=== PATIENT | male | born 1935 | race African-American/Black ===

== ENCOUNTER 2020-09-07 15:50 | Inpatient (IN) | payer MEDICARE, MEDICAID ==
[~2020-09-07] VITALS: Ht 177.8 cm; Wt 75.4 kg
[~2020-09-07 15:50] MED LIST: DICL100G31 TP; HYDR-4346 PO; KETO15CR2 TP; METO25TA6 MT; NITR0.4T49 SL; NITR12SP4 TL; OXYC-662 MT; SODI3.5O6 OP
[2020-09-07] MEDS ORDERED: MORPHINE SULFATE 4 MG/ML CPJ (NOT FOR IM USE) IV STA (16:24)
[2020-09-07] MEDS ORDERED: NITROGLYCERIN 0.4MG TABLET SL SL PRN (16:30)
[2020-09-07 17:51] LABS: BASOPHILS % 0.2 % (0.0-2.0); EOSINOPHILS % 0.6 % (0.0-5.0); HEMATOCRIT. 35.1 % (42.0-52.0); HEMOGLOBIN. 12.1 g/dL (14.0-18.0); LYMPHOCYTES % 51.1 % (20.0-50.0); MEAN CORPUSCULAR HEMOGLOBIN 33.7 pg (28.0-32.0); MEAN CORPUSCULAR VOLUME 97.4 fL (80.0-94.0); MEAN PLATELET VOLUME 9.9 fl (7.4-10.4); MONOCYTES % 8.5 % (2.0-8.0); NEUTROPHILS % 39.6 % (40.0-76.0); PLATELET 106 x1000/uL (130-400); RED BLOOD CELL COUNT 3.61 mill/uL (4.7-6.1); RED CELL DISTRIBUTION WIDTH 13.4 % (11.6-14.6)
[2020-09-07 17:55] LABS: CHLORIDE 109 mEq/L (98-107)
[2020-09-07 18:00] LABS: PROTHROMBIN TIME 11.2 sec (9.6-11.0)
[2020-09-07] MEDS ORDERED: MORPHINE SULFATE 4 MG/ML CPJ (NOT FOR IM USE) IV SCH (22:15)
[2020-09-08 08:14] VITALS: BP 121/63
[2020-09-08 11:40] VITALS: BP 121/72
[2020-09-08 12:00] VITALS: BP 104/54
[2020-09-08] MEDS ORDERED: ONDANSETRON HCL 4MG/2ML INJ IV PRN (12:30)
[2020-09-08] MEDS ORDERED: ACETAMINOPHEN 325MG TABLET PO PRN (12:30)
[2020-09-08] MEDS: ISOSORBIDE DINITRATE 10MG TABLET PO SCH ×2 (14:00→20:00)
[2020-09-08] MEDS: OXYCODONE HCL/ACETAMINOPHEN 5/325MG TABLET PO PRN (15:46)
[2020-09-08 16:00] VITALS: BP 137/61
[2020-09-08] MEDS ORDERED: SODIUM CHLORIDE 0.9% 500 ML IV ONE (16:30)
[2020-09-08 20:00] VITALS: BP 107/54
[2020-09-08] MEDS: ATORVASTATIN CALCIUM 40MG TABLET PO SCH (21:17)
[2020-09-08 21:19] LABS: *AMPHETAMINES SCREEN URINE NEGATIVE (NEGATIVE); *BARBITURATES SCREEN URINE NEGATIVE (NEGATIVE); *BENZODIAZEPINES SCREEN URINE NEGATIVE (NEGATIVE); *COCAINE SCREEN URINE PRESUMTIVE POSITIVE (NEGATIVE); METHADONE URINE SCREEN NEGATIVE (NEGATIVE); OPIATES URINE SCREEN PRESUMTIVE POSITIVE (NEGATIVE); PHENCYCLIDINE URINE SCREEN NEGATIVE (NEGATIVE)
[2020-09-08 21:20] LABS: CANNABINOID URINE SCREEN NEGATIVE (NEGATIVE)
[2020-09-09] VITALS (19 sets, daily range): BP systolic 95–147; BP diastolic 31–80
[2020-09-09] MEDS: OXYCODONE HCL/ACETAMINOPHEN 5/325MG TABLET PO PRN ×2 (03:51→12:08)
[2020-09-09] MEDS ORDERED: HEPARIN SODIUM 1,000 UNIT/1ML VIAL IV ONE (07:40)
[2020-09-09] MEDS ORDERED: MIDAZOLAM HCL 2 MG/2 ML VIAL ONE (07:53)
[2020-09-09] MEDS ORDERED: VERAPAMIL HCL 2.5 MG/1 ML 2ML VIAL IV ONE (07:53)
[2020-09-09] MEDS ORDERED: FENTANYL CITRATE/PF 50MCG/ML 2ML VIAL ONE (07:53)
[2020-09-09] MEDS ORDERED: LIDOCAINE HCL 1% 20ML VIAL (Pyxis) INJ ONE (07:54)
[2020-09-09] MEDS ORDERED: IODIXANOL 320MG/ML 100 ML BOTTLE IV ONE (07:54)
[2020-09-09] MEDS: ASPIRIN 81MG TABLET PO SCH (09:00)
[2020-09-09] MEDS: ISOSORBIDE DINITRATE 10MG TABLET PO SCH ×3 (09:00→18:34)
[2020-09-09 09:28] LABS: BASOPHILS % 0.5 % (0.0-2.0); EOSINOPHILS % 0.8 % (0.0-5.0); HEMATOCRIT. 35.4 % (42.0-52.0); HEMOGLOBIN. 12.4 g/dL (14.0-18.0); LYMPHOCYTES % 51.6 % (20.0-50.0); MEAN CORPUSCULAR HEMOGLOBIN 33.5 pg (28.0-32.0); MEAN CORPUSCULAR VOLUME 95.8 fL (80.0-94.0); MEAN PLATELET VOLUME 10.4 fl (7.4-10.4); MONOCYTES % 9.3 % (2.0-8.0); NEUTROPHILS % 37.8 % (40.0-76.0); PLATELET 110 x1000/uL (130-400); RED CELL DISTRIBUTION WIDTH 13.6 % (11.6-14.6)
[2020-09-09] MEDS ORDERED: ATROPINE SULFATE 1MG/10ML SYR IV PRN (10:15)
[2020-09-09] MEDS ORDERED: LORAZEPAM 1MG TABLET PO NR (18:30)
[2020-09-09] MEDS: ATORVASTATIN CALCIUM 40MG TABLET PO SCH (20:56)
[2020-09-10] VITALS (8 sets, daily range): BP systolic 95–136; BP diastolic 47–63
[2020-09-10] MEDS: OXYCODONE HCL/ACETAMINOPHEN 5/325MG TABLET PO PRN ×2 (02:52→18:07)
[2020-09-10] MEDS ORDERED: ACETAMINOPHEN 325MG TABLET PO PRN (05:00)
[2020-09-10] MEDS ORDERED: NITROGLYCERIN 0.4MG TABLET SL SL PRN (05:00)
[2020-09-10 06:24] LABS: BASOPHILS % 0.2 % (0.0-2.0); EOSINOPHILS % 0.7 % (0.0-5.0); HEMATOCRIT. 35.6 % (42.0-52.0); HEMOGLOBIN. 12.3 g/dL (14.0-18.0); LYMPHOCYTES % 43.7 % (20.0-50.0); MEAN CORPUSCULAR HEMOGLOBIN 33.7 pg (28.0-32.0); MEAN CORPUSCULAR VOLUME 97.4 fL (80.0-94.0); MEAN PLATELET VOLUME 10.5 fl (7.4-10.4); NEUTROPHILS % 44.4 % (40.0-76.0); PLATELET 100 x1000/uL (130-400); RED BLOOD CELL COUNT 3.65 mill/uL (4.7-6.1); RED CELL DISTRIBUTION WIDTH 13.5 % (11.6-14.6)
[2020-09-10] MEDS: ISOSORBIDE DINITRATE 10MG TABLET PO SCH ×3 (08:08→18:03)
[2020-09-10] MEDS: ASPIRIN 81MG TABLET PO SCH (08:08)
[2020-09-10 09:00] LABS: PROTHROMBIN TIME 10.9 sec (9.6-11.0)
[2020-09-10 09:06] LABS: CHLORIDE 107 mEq/L (98-107)
[2020-09-10] MEDS ORDERED: DIPHENHYDRAMINE 25MG CAPSULE PO PRN (21:00)
[2020-09-10] MEDS ORDERED: DOCUSATE SODIUM 100MG CAPSULE PO SCH (21:00)
[2020-09-10] MEDS ORDERED: CHLORHEXIDINE GLUCONATE 4% EXTERNAL USE TOP SCH (21:00)
[2020-09-10] MEDS ORDERED: ASCORBIC ACID 500 MG TABLET PO SCH (21:00)
[2020-09-10] MEDS ORDERED: ALLOPURINOL 300 MG TABLET PO SCH (21:00)
[2020-09-10] MEDS ORDERED: BISACODYL 10MG SUPP PR PRN (21:00)
[2020-09-10] MEDS: ATORVASTATIN CALCIUM 40MG TABLET PO SCH (22:25)
[2020-09-11] VITALS (7 sets, daily range): BP systolic 105–146; BP diastolic 63–87
[2020-09-11] MEDS: ASPIRIN 81MG TABLET PO SCH (09:07)
[2020-09-11] MEDS: ISOSORBIDE DINITRATE 10MG TABLET PO SCH ×3 (09:07→16:31)
[2020-09-11 09:53] LABS: BASOPHILS % 0.7 % (0.0-2.0); EOSINOPHILS % 0.7 % (0.0-5.0); HEMATOCRIT. 35.8 % (42.0-52.0); HEMOGLOBIN. 12.2 g/dL (14.0-18.0); LYMPHOCYTES % 39.8 % (20.0-50.0); MEAN CORPUSCULAR HEMOGLOBIN 33.2 pg (28.0-32.0); MEAN CORPUSCULAR VOLUME 97.6 fL (80.0-94.0); MONOCYTES % 9.6 % (2.0-8.0); NEUTROPHILS % 49.2 % (40.0-76.0); PLATELET 96 x1000/uL (130-400); RED BLOOD CELL COUNT 3.67 mill/uL (4.7-6.1); RED CELL DISTRIBUTION WIDTH 13.4 % (11.6-14.6)
[2020-09-11 11:28] LABS: CLARITY URINE CLOUDY (CLEAR); COLOR URINE YELLOW (YELLOW); KETONES URINE NEGATIVE (NEGATIVE); LEUKOCYTE ESTERASE URINE NEGATIVE (NEGATIVE); NITRITE URINE POSITIVE (NEGATIVE); OCCULT BLOOD URINE NEGATIVE (NEGATIVE); PH URINE >=9.0 (4.5-8.0); PROTEIN URINE TRACE (NEGATIVE); SPECIFIC GRAVITY URINE 1.012 (1.005-1.030)
[2020-09-11] MEDS: ATORVASTATIN CALCIUM 40MG TABLET PO SCH (20:50)
[2020-09-11] MEDS: ALLOPURINOL 300 MG TABLET PO SCH (20:50)
[2020-09-11] MEDS ORDERED: DOCUSATE SODIUM 100MG CAPSULE PO SCH (21:00)
[2020-09-11] MEDS ORDERED: CHLORHEXIDINE GLUCONATE 4% EXTERNAL USE TOP SCH (21:00)
[2020-09-11] MEDS ORDERED: ASCORBIC ACID 500 MG TABLET PO SCH (21:00)
[2020-09-11] MEDS: OXYCODONE HCL/ACETAMINOPHEN 5/325MG TABLET PO PRN (22:00)
[2020-09-12] VITALS (99 sets, daily range): BP systolic 92–174; BP diastolic 45–84
[2020-09-12] MEDS ORDERED: BLOOD SUGAR DIAGNOSTIC STRIP TEST ONE (04:00)
[2020-09-12] MEDS ORDERED: CEFAZOLIN 2,000 MG in DEXT 5% WATER 100 ML IV ONE (04:00)
[2020-09-12 05:31] LABS: BASOPHILS % 0.4 % (0.0-2.0); EOSINOPHILS % 0.5 % (0.0-5.0); HEMATOCRIT. 39.9 % (42.0-52.0); HEMOGLOBIN. 13.4 g/dL (14.0-18.0); LYMPHOCYTES % 57.9 % (20.0-50.0); MEAN CORPUSCULAR HEMOGLOBIN 32.4 pg (28.0-32.0); MEAN CORPUSCULAR VOLUME 96.9 fL (80.0-94.0); MEAN PLATELET VOLUME 9.8 fl (7.4-10.4); MONOCYTES % 8.7 % (2.0-8.0); NEUTROPHILS % 32.5 % (40.0-76.0); PLATELET 118 x1000/uL (130-400); RED BLOOD CELL COUNT 4.12 mill/uL (4.7-6.1)
[2020-09-12] MEDS ORDERED: SKIN ADHESIVE 0.7 GM EA TOP ONE (05:41)
[2020-09-12] MEDS ORDERED: THROMBIN (BOVINE) 5000 UNITS/VIAL TOP ONE (05:41)
[2020-09-12] MEDS ORDERED: ACETAMINOPHEN 500MG TABLET ONE (05:41)
[2020-09-12] MEDS ORDERED: POLYMYXIN B SULFATE 500000 UNITS/VIAL ONE (05:42)
[2020-09-12] MEDS: ALLOPURINOL 300 MG TABLET PO SCH (05:55)
[2020-09-12] MEDS ORDERED: DOBUTAMINE 250 MG PREMIX 250 ML IV PRN (06:00)
[2020-09-12] MEDS ORDERED: EPINEPHRINE 5 MG in DEXT 5% WATER 245 ML IV PRN (06:00)
[2020-09-12] MEDS ORDERED: PAPAVERINE HCL 180MG in SODIUM CHLORIDE 0.9% 24ML IV PRN (06:00)
[2020-09-12] MEDS ORDERED: DEL NIDO ELECTROLYTE-S(PH 7.4) 1,000 ML IV PRN ×2 (06:00)
[2020-09-12] MEDS ORDERED: NICARDIPINE 40 MG/200 ML PREMIX 200 ML IV PRN (06:00)
[2020-09-12] MEDS ORDERED: INSULIN REGULAR (DRIP) 100 UNITS in SODIUM CHLORIDE 0.9% 99 ML IV PRN (06:00)
[2020-09-12] MEDS ORDERED: NOREPINEPHRINE 8 MG in DEXT 5% WATER 242 ML IV PRN (06:00)
[2020-09-12] MEDS ORDERED: DOPAMINE 400 MG PREMIX 250 ML IV PRN (06:00)
[2020-09-12] MEDS ORDERED: NITROGLYCERIN 50MG PREMIX 250 ML IV ONE (06:31)
[2020-09-12] MEDS ORDERED: HEPARIN 1000 UNITS/ML 10ML ONE (06:33)
[2020-09-12] MEDS ORDERED: FENTANYL CITRATE/PF 50MCG/ML 2ML VIAL ONE ×2 (06:41→06:45)
[2020-09-12] MEDS ORDERED: MIDAZOLAM HCL 2 MG/2 ML VIAL ONE (06:41)
[2020-09-12] MEDS ORDERED: PROPOFOL 200MG/20ML VIAL IV ONE (06:42)
[2020-09-12] MEDS ORDERED: ROCURONIUM BROMIDE 10MG/ML VIAL 5ML IV ONE (06:52)
[2020-09-12] MEDS ORDERED: HEPARIN 10,000 UNITS/ML VIAL ONE (07:46)
[2020-09-12] MEDS ORDERED: FUROSEMIDE 100MG/10ML VIAL ONE (07:46)
[2020-09-12] MEDS ORDERED: MAGNESIUM SULFATE 5GM/10ML VIAL IV ONE (07:46)
[2020-09-12] MEDS ORDERED: ONDANSETRON HCL 4MG/2ML INJ ONE (08:19)
[2020-09-12] MEDS ORDERED: DEXAMETHASONE 4MG/ML 1ML VIAL ONE (08:20)
[2020-09-12] MEDS ORDERED: METOCLOPRAMIDE HCL 10MG/2ML VIAL ONE (08:20)
[2020-09-12] MEDS: ISOSORBIDE DINITRATE 10MG TABLET PO SCH ×4 (09:00→18:12)
[2020-09-12] MEDS ORDERED: CHLORHEXIDINE GLUCONATE 4% EXTERNAL USE TOP SCH (09:00)
[2020-09-12] MEDS: ASPIRIN 81MG TABLET PO SCH (09:00)
[2020-09-12] MEDS ORDERED: KCL 10MEQ/50ML PREMIX 150 ML IV PRN (10:15)
[2020-09-12] MEDS: BLOOD SUGAR DIAGNOSTIC STRIP TEST SCH ×13 (10:15→23:00)
[2020-09-12] MEDS ORDERED: KCL 10MEQ/50ML PREMIX 200 ML IV PRN (10:15)
[2020-09-12] MEDS ORDERED: DEXTROSE 50% WATER 50ML SYRINGE IV PRN ×6 (10:15→12:15)
[2020-09-12] MEDS ORDERED: KCL 10MEQ/50ML PREMIX 100 ML IV PRN (10:15)
[2020-09-12] MEDS ORDERED: INSULIN REGULAR (DRIP) 100 UNITS in SODIUM CHLORIDE 0.9% 100 ML IV SCH ×2 (10:15→12:15)
[2020-09-12] MEDS ORDERED: POTASSIUM CHLORIDE 10MEQ IN WATER 50ML PREMIX IV ONE (10:15)
[2020-09-12] MEDS ORDERED: MAGNESIUM SULFATE 1G IN DEXT 5% 100ML PREMIX IV ONE (10:15)
[2020-09-12] MEDS ORDERED: NEOSTIGMINE METHYLSULFATE 1MG/ML 10 ML VIAL ONE (10:33)
[2020-09-12] MEDS ORDERED: CALCIUM CHLORIDE 5,000 MG in DEXT 5% WATER 500 ML IV PRN (11:15)
[2020-09-12] MEDS ORDERED: MAGNESIUM SULFATE 3 GM in DEXT 5% WATER 100 ML IV PRN (11:15)
[2020-09-12] MEDS ORDERED: ACETAMINOPHEN 325MG TABLET PO PRN (11:15)
[2020-09-12] MEDS ORDERED: ALBUMIN HUMAN 12.5G/250ML (5%) IV PRN (11:15)
[2020-09-12] MEDS ORDERED: MAGNESIUM 2 G PREMIX 50 ML IV PRN (11:15)
[2020-09-12] MEDS ORDERED: OXYCODONE HCL/ACETAMINOPHEN 5/325MG TABLET PO PRN (11:15)
[2020-09-12] MEDS ORDERED: CALCIUM CHLORIDE 3,000 MG in DEXT 5% WATER 250 ML IV PRN (11:15)
[2020-09-12] MEDS ORDERED: MORPHINE SULFATE 2 MG/ML CPJ (NOT FOR IM USE) IV PRN (11:15)
[2020-09-12] MEDS ORDERED: ALBUMIN HUMAN 25GM/100ML (25%) IV PRN (11:15)
[2020-09-12] MEDS ORDERED: MAGNESIUM 1 G PREMIX 100 ML IV PRN (11:15)
[2020-09-12 11:28] LABS: BG BASE EXCESS -8.6 mmol/L (-2.0-2.0); BG CARBOXYHEMOGLOBIN 0.8 % (0.5-1.5); BG DEOXYHEMOGLOBIN 9.8 % (0.0-5.0); BG FRACTION INSPIRED OXYGEN 60; BG HCO3 ACT 18.1 mmol/L (22.0-26.0); BG METHEMOGLOBIN 0.3 % (0.0-1.5); BG OXYGEN SATURATION 90.1 % (92.0-98.5); BG OXYHEMOGLOBIN 89.1 % (94.0-97.0); BG PCO2 41.4 mmHg (35.0-45.0); BG PH 7.258 (7.350-7.450); BG PO2 65.8 mmHg (75.0-100.0); BG SAMPLE SITE ALINE; BG TOTAL HEMOGLOBIN 13.9 g/dL (12.0-18.0); BG VENT MODE MASK - SIMPLE
[2020-09-12 11:54] LABS: BASOPHILS % 0.5 % (0.0-2.0); EOSINOPHILS % 0.1 % (0.0-5.0); HEMATOCRIT. 37.9 % (42.0-52.0); LYMPHOCYTES % 18.3 % (20.0-50.0); MEAN CORPUSCULAR HEMOGLOBIN 33.3 pg (28.0-32.0); MEAN CORPUSCULAR VOLUME 97.2 fL (80.0-94.0); MEAN PLATELET VOLUME 10.1 fl (7.4-10.4); MONOCYTES % 1.6 % (2.0-8.0); NEUTROPHILS % 79.5 % (40.0-76.0); PLATELET 138 x1000/uL (130-400); RED BLOOD CELL COUNT 3.89 mill/uL (4.7-6.1); RED CELL DISTRIBUTION WIDTH 13.6 % (11.6-14.6)
[2020-09-12 11:58] LABS: CHLORIDE 109 mEq/L (98-107)
[2020-09-12] MEDS: DEXT 5%/0.45% NACL 1000ML 1,000 ML IV SCH (11:59)
[2020-09-12] MEDS ORDERED: BLOOD SUGAR DIAGNOSTIC STRIP TEST SCH ×2 (12:00→12:15)
[2020-09-12] MEDS ORDERED: DOPAMINE 400MG/250ML PREMIX 250 ML IV SCH (12:00)
[2020-09-12] MEDS ORDERED: EPINEPHRINE 5 MG in DEXT 5% WATER 245 ML IV SCH (12:00)
[2020-09-12] MEDS ORDERED: NITROGLYCERIN 50MG PREMIX 250 ML IV SCH (12:00)
[2020-09-12] MEDS ORDERED: MAGNESIUM/ALUMINUM HYDROXIDE/SIMETHICONE 30ML UDC NG SCH (12:00)
[2020-09-12] MEDS: MAGNESIUM HYDROXIDE 400MG/5ML 30ML UDC PO SCH ×3 (12:00→20:20)
[2020-09-12] MEDS ORDERED: SODIUM CHLORIDE 0.9% 500 ML IV PRN (12:00)
[2020-09-12 12:03] LABS: PHOSPHORUS 4.2 mg/dL (2.5-4.9)
[2020-09-12] MEDS ORDERED: KETOROLAC 15MG/ML VIAL IV NR (12:45)
[2020-09-12] MEDS: INSULIN REGULAR (DRIP) 100 UNITS in SODIUM CHLORIDE 0.9% 100 ML IV SCH ×2 (13:40→20:21)
[2020-09-12] MEDS: CLOPIDOGREL 75MG TABLET PO SCH ×2 (14:32→21:35)
[2020-09-12] MEDS: CEFAZOLIN 1000MG PREMIX 50 ML IV SCH ×2 (14:35→21:35)
[2020-09-12] MEDS ORDERED: LEVETIRACETAM 500 MG in SODIUM CHLORIDE 0.9% 100 ML IV SCH (14:45)
[2020-09-12] MEDS: BACITRACIN 15GM TUBE TOP SCH (17:00)
[2020-09-12] MEDS: DOCUSATE SODIUM 100MG CAPSULE PO SCH (17:07)
[2020-09-12 17:51] LABS: HEMATOCRIT. 38.9 % (42.0-52.0); HEMOGLOBIN. 13.4 g/dL (14.0-18.0); MEAN CORPUSCULAR HEMOGLOBIN 33.1 pg (28.0-32.0); MEAN CORPUSCULAR VOLUME 95.9 fL (80.0-94.0); MEAN PLATELET VOLUME 10.2 fl (7.4-10.4); PLATELET 171 x1000/uL (130-400); RED BLOOD CELL COUNT 4.06 mill/uL (4.7-6.1); RED CELL DISTRIBUTION WIDTH 13.4 % (11.6-14.6)
[2020-09-12 17:55] LABS: CHLORIDE 110 mEq/L (98-107)
[2020-09-12 18:01] LABS: PARTIAL THROMBOPLASTIN TIME 23.8 sec (23.4-31.0); PHOSPHORUS 2.7 mg/dL (2.5-4.9); PROTHROMBIN TIME 10.9 sec (9.6-11.0)
[2020-09-12] MEDS: MORPHINE SULFATE 2 MG/ML CPJ (NOT FOR IM USE) IV PRN (18:21)
[2020-09-12 18:23] LABS: PLATELET ESTIMATE NORMAL
[2020-09-12] MEDS ORDERED: MAGNESIUM 2 G PREMIX 50 ML IV NR (18:30)
[2020-09-12] MEDS ORDERED: FUROSEMIDE 40MG/4ML VIAL IVP NR (19:00)
[2020-09-12] MEDS: ATORVASTATIN CALCIUM 40MG TABLET PO SCH (20:20)
[2020-09-12] MEDS: LEVETIRACETAM 500MG PREMIX 100 ML IV SCH (20:20)
[2020-09-12] MEDS: MAGNESIUM/ALUMINUM HYDROXIDE/SIMETHICONE 30ML UDC PO SCH (20:20)
[2020-09-12] MEDS: IPRATROPIUM/ALBUTEROL 0.5-3(2.5)MG/3ML NEB HHN SCH (21:14)
[2020-09-12] MEDS: OXYCODONE HCL/ACETAMINOPHEN 5/325MG TABLET PO PRN (21:50)
[2020-09-13] VITALS (111 sets, daily range): BP systolic 0–167; BP diastolic 0–97
[2020-09-13] MEDS: IPRATROPIUM/ALBUTEROL 0.5-3(2.5)MG/3ML NEB HHN SCH ×6 (00:24→20:24)
[2020-09-13] MEDS: MAGNESIUM HYDROXIDE 400MG/5ML 30ML UDC PO SCH ×4 (00:30→12:50)
[2020-09-13] MEDS: MAGNESIUM/ALUMINUM HYDROXIDE/SIMETHICONE 30ML UDC PO SCH ×6 (00:30→20:31)
[2020-09-13] MEDS: BLOOD SUGAR DIAGNOSTIC STRIP TEST SCH ×18 (01:00→21:00)
[2020-09-13] MEDS: MORPHINE SULFATE 2 MG/ML CPJ (NOT FOR IM USE) IV PRN ×4 (01:08→15:24)
[2020-09-13] MEDS: BACITRACIN 15GM TUBE TOP SCH ×2 (05:00→17:15)
[2020-09-13 05:30] LABS: BASOPHILS % 0.1 % (0.0-2.0); HEMATOCRIT. 36.9 % (42.0-52.0); HEMOGLOBIN. 12.5 g/dL (14.0-18.0); MEAN CORPUSCULAR HEMOGLOBIN 32.5 pg (28.0-32.0); MEAN CORPUSCULAR VOLUME 95.7 fL (80.0-94.0); MEAN PLATELET VOLUME 10.3 fl (7.4-10.4); MONOCYTES % 8.8 % (2.0-8.0); NEUTROPHILS % 79.1 % (40.0-76.0); PLATELET 167 x1000/uL (130-400); RED BLOOD CELL COUNT 3.85 mill/uL (4.7-6.1); RED CELL DISTRIBUTION WIDTH 13.7 % (11.6-14.6)
[2020-09-13] MEDS ORDERED: AMIODARONE HCL 50MG/ML 3ML VIAL IV ONE (05:30)
[2020-09-13] MEDS ORDERED: AMIODARONE HCL 50MG/ML 9ML VIAL IV ONE (05:30)
[2020-09-13] MEDS: OXYCODONE HCL/ACETAMINOPHEN 5/325MG TABLET PO PRN ×2 (05:37→17:16)
[2020-09-13] MEDS ORDERED: MAGNESIUM 2 G PREMIX 50 ML IV NR (06:00)
[2020-09-13] MEDS ORDERED: AMIODARONE HCL 150 MG in DEXT 5% WATER 100 ML IV NR (06:00)
[2020-09-13] MEDS ORDERED: AMIODARONE HCL 900 MG in DEXT 5% WATER 500 ML IV NR (06:30)
[2020-09-13] MEDS: CLOPIDOGREL 75MG TABLET PO SCH ×3 (06:36→21:08)
[2020-09-13] MEDS: CEFAZOLIN 1000MG PREMIX 50 ML IV SCH ×2 (06:43→13:01)
[2020-09-13] MEDS ORDERED: FUROSEMIDE 40MG/4ML VIAL IVP SCH ×2 (06:45→14:30)
[2020-09-13] MEDS: FAMOTIDINE 20MG/2ML VIAL IV SCH (08:34)
[2020-09-13] MEDS: ASPIRIN 81MG TABLET PO SCH (08:34)
[2020-09-13] MEDS: LEVETIRACETAM 500MG PREMIX 100 ML IV SCH ×2 (08:34→20:35)
[2020-09-13] MEDS: ISOSORBIDE DINITRATE 10MG TABLET PO SCH ×3 (08:35→17:00)
[2020-09-13] MEDS: DOCUSATE SODIUM 100MG CAPSULE PO SCH ×2 (09:46→17:16)
[2020-09-13] MEDS: DEXT 5%/0.45% NACL 1000ML 1,000 ML IV SCH (12:37)
[2020-09-13] MEDS ORDERED: DEXTROSE 50% WATER 50ML SYRINGE IV PRN (14:30)
[2020-09-13] MEDS: INSULIN LISPRO 100 UNITS/ML SUBCUT SCH ×2 (17:17→21:11)
[2020-09-13] MEDS ORDERED: DOPAMINE 400MG/250ML PREMIX 250 ML IV PRN (19:30)
[2020-09-13] MEDS ORDERED: FUROSEMIDE 100MG/10ML VIAL IVP NR (19:30)
[2020-09-13] MEDS ORDERED: FUROSEMIDE IV SCH (20:30)
[2020-09-13] MEDS ORDERED: FUROSEMIDE 250 MG in SODIUM CHLORIDE 0.9% 225 ML IV SCH (20:30)
[2020-09-13] MEDS ORDERED: SODIUM CHLORIDE 0.9% IV SCH (20:30)
[2020-09-13] MEDS: ATORVASTATIN CALCIUM 40MG TABLET PO SCH (20:31)
[2020-09-13] MEDS: AMIODARONE HCL 200 MG TABLET PO SCH (20:32)
[2020-09-13] MEDS: HYDROCODONE/ACETAMINOPHEN 5/325MG TABLET PO PRN (20:48)
[2020-09-14] VITALS (95 sets, daily range): BP systolic 88–161; BP diastolic 40–104
[2020-09-14] MEDS: MAGNESIUM/ALUMINUM HYDROXIDE/SIMETHICONE 30ML UDC PO SCH ×7 (00:11→23:18)
[2020-09-14] MEDS: OXYCODONE HCL/ACETAMINOPHEN 5/325MG TABLET PO PRN (00:27)
[2020-09-14] MEDS: IPRATROPIUM/ALBUTEROL 0.5-3(2.5)MG/3ML NEB HHN SCH ×6 (00:35→20:44)
[2020-09-14] MEDS: ONDANSETRON HCL 4MG/2ML INJ IV PRN ×2 (04:44→10:58)
[2020-09-14] MEDS ORDERED: ALBUMIN HUMAN 25GM/100ML (25%) IV ONE (05:15)
[2020-09-14] MEDS ORDERED: ALBUMIN HUMAN 12.5G/250ML (5%) IV ONE (05:15)
[2020-09-14 05:45] LABS: BASOPHILS % 0.1 % (0.0-2.0); HEMATOCRIT. 34.5 % (42.0-52.0); HEMOGLOBIN. 11.5 g/dL (14.0-18.0); LYMPHOCYTES % 12.2 % (20.0-50.0); MEAN CORPUSCULAR VOLUME 96.6 fL (80.0-94.0); MEAN PLATELET VOLUME 10.5 fl (7.4-10.4); MONOCYTES % 9.5 % (2.0-8.0); NEUTROPHILS % 78.2 % (40.0-76.0); PLATELET 154 x1000/uL (130-400); RED BLOOD CELL COUNT 3.58 mill/uL (4.7-6.1); RED CELL DISTRIBUTION WIDTH 14.1 % (11.6-14.6)
[2020-09-14] MEDS: BLOOD SUGAR DIAGNOSTIC STRIP TEST SCH ×4 (06:17→20:53)
[2020-09-14] MEDS: CLOPIDOGREL 75MG TABLET PO SCH ×3 (06:51→21:17)
[2020-09-14] MEDS: INSULIN LISPRO 100 UNITS/ML SUBCUT SCH ×4 (06:53→21:14)
[2020-09-14] MEDS: AMIODARONE HCL 200 MG TABLET PO SCH ×2 (08:30→20:53)
[2020-09-14] MEDS: DOCUSATE SODIUM 100MG CAPSULE PO SCH ×2 (08:30→17:48)
[2020-09-14] MEDS: LEVETIRACETAM 500MG PREMIX 100 ML IV SCH ×2 (08:31→20:53)
[2020-09-14] MEDS: ISOSORBIDE DINITRATE 10MG TABLET PO SCH ×3 (08:31→17:48)
[2020-09-14] MEDS: FAMOTIDINE 20MG/2ML VIAL IV SCH (08:31)
[2020-09-14] MEDS: ASPIRIN 81MG TABLET PO SCH (08:33)
[2020-09-14] MEDS: BACITRACIN 15GM TUBE TOP SCH ×2 (08:51→17:49)
[2020-09-14] MEDS ORDERED: LACTULOSE 20G/30ML UDC PO PRN (10:45)
[2020-09-14] MEDS ORDERED: NA PHOS,M-B/NA PHOS,DI-BA ENEMA 118ML PR NR (11:30)
[2020-09-14] MEDS ORDERED: BENZONATATE 100MG CAPSULE PO PRN (11:30)
[2020-09-14] MEDS ORDERED: DEXT 5%/0.45% NACL 1000ML 1,000 ML IV SCH (15:15)
[2020-09-14] MEDS: METOCLOPRAMIDE HCL 10MG/2ML VIAL IV SCH ×2 (17:01→23:18)
[2020-09-14] MEDS ORDERED: DEXT 5%/0.9% NACL 1,000 ML IV SCH (20:30)
[2020-09-14] MEDS: ATORVASTATIN CALCIUM 40MG TABLET PO SCH (20:53)
[2020-09-14] MEDS: LACTULOSE 20G/30ML UDC PO SCH (21:17)
[2020-09-15] VITALS (94 sets, daily range): BP systolic 93–147; BP diastolic 42–89
[2020-09-15] MEDS: IPRATROPIUM/ALBUTEROL 0.5-3(2.5)MG/3ML NEB HHN SCH ×6 (01:02→20:02)
[2020-09-15] MEDS ORDERED: AMIODARONE HCL 900 MG in DEXT 5% WATER 482 ML IV PRN (05:15)
[2020-09-15] MEDS ORDERED: AMIODARONE HCL 150 MG in DEXT 5% WATER 97 ML IV NR (05:15)
[2020-09-15] MEDS ORDERED: FUROSEMIDE 40MG/4ML VIAL IVP NR (05:45)
[2020-09-15] MEDS ORDERED: ERYTHROMYCIN ETHYLSUCCINATE 200MG/5ML 100ML NG SCH (06:00)
[2020-09-15] MEDS: MAGNESIUM/ALUMINUM HYDROXIDE/SIMETHICONE 30ML UDC PO SCH ×5 (06:09→22:12)
[2020-09-15] MEDS: CLOPIDOGREL 75MG TABLET PO SCH ×3 (06:09→22:12)
[2020-09-15] MEDS: METOCLOPRAMIDE HCL 10MG/2ML VIAL IV SCH ×3 (06:32→17:05)
[2020-09-15 06:50] LABS: BASOPHILS % 0.1 % (0.0-2.0); EOSINOPHILS % 0.1 % (0.0-5.0); HEMATOCRIT. 26.7 % (42.0-52.0); HEMOGLOBIN. 9.2 g/dL (14.0-18.0); LYMPHOCYTES % 14.8 % (20.0-50.0); MEAN CORPUSCULAR HEMOGLOBIN 33.6 pg (28.0-32.0); MEAN CORPUSCULAR VOLUME 97.9 fL (80.0-94.0); MEAN PLATELET VOLUME 10.9 fl (7.4-10.4); MONOCYTES % 11.2 % (2.0-8.0); NEUTROPHILS % 73.8 % (40.0-76.0); PLATELET 104 x1000/uL (130-400); RED BLOOD CELL COUNT 2.72 mill/uL (4.7-6.1); RED CELL DISTRIBUTION WIDTH 13.9 % (11.6-14.6)
[2020-09-15 07:20] LABS: FOLIC ACID (FOLATE) SERUM 19.6 ng/mL (>5.38)
[2020-09-15] MEDS: BLOOD SUGAR DIAGNOSTIC STRIP TEST SCH ×4 (08:25→21:00)
[2020-09-15 09:24] LABS: BASOPHILS % 0.1 % (0.0-2.0); HEMOGLOBIN. 9.4 g/dL (14.0-18.0); LYMPHOCYTES % 8.9 % (20.0-50.0); MEAN CORPUSCULAR HEMOGLOBIN 33.8 pg (28.0-32.0); MEAN CORPUSCULAR VOLUME 97.4 fL (80.0-94.0); MEAN PLATELET VOLUME 10.6 fl (7.4-10.4); MONOCYTES % 9.8 % (2.0-8.0); NEUTROPHILS % 81.2 % (40.0-76.0); PLATELET 108 x1000/uL (130-400); RED BLOOD CELL COUNT 2.77 mill/uL (4.7-6.1)
[2020-09-15] MEDS: LEVETIRACETAM 500MG PREMIX 100 ML IV SCH ×2 (11:01→22:38)
[2020-09-15] MEDS: LACTULOSE 20G/30ML UDC PO SCH ×2 (11:01→22:12)
[2020-09-15] MEDS: FAMOTIDINE 20MG/2ML VIAL IV SCH (11:01)
[2020-09-15] MEDS: BACITRACIN 15GM TUBE TOP SCH ×2 (11:02→17:06)
[2020-09-15] MEDS: ASPIRIN 81MG TABLET PO SCH (11:02)
[2020-09-15] MEDS: DOCUSATE SODIUM 100MG CAPSULE PO SCH ×2 (11:02→17:05)
[2020-09-15] MEDS: INSULIN LISPRO 100 UNITS/ML SUBCUT SCH ×4 (11:08→21:00)
[2020-09-15] MEDS: SODIUM CHLORIDE 0.9% 1,000 ML IV SCH (11:36)
[2020-09-15] MEDS ORDERED: INSULIN GLARGINE UD 100 UNITS/ML SYR SUBCUT NR (12:30)
[2020-09-15] MEDS: ERYTHROMYCIN ETHYLSUCCINATE 200MG/5ML 100ML NG SCH ×2 (15:18→17:06)
[2020-09-15] MEDS: IRON SUCROSE COMPLEX 100 MG/5 ML ML IV SCH (15:18)
[2020-09-15] MEDS: ACETYLCYSTEINE 100MG/ML 10% VIAL 4ML INH SCH (16:53)
[2020-09-15] MEDS ORDERED: INSULIN GLARGINE UD 100 UNITS/ML SYR SUBCUT SCH (22:00)
[2020-09-15] MEDS: ATORVASTATIN CALCIUM 40MG TABLET PO SCH (22:12)
[2020-09-16] VITALS (39 sets, daily range): BP systolic 92–160; BP diastolic 44–116
[2020-09-16] MEDS: MAGNESIUM/ALUMINUM HYDROXIDE/SIMETHICONE 30ML UDC PO SCH ×6 (00:32→21:08)
[2020-09-16] MEDS: METOCLOPRAMIDE HCL 10MG/2ML VIAL IV SCH ×4 (00:32→18:00)
[2020-09-16] MEDS: ERYTHROMYCIN ETHYLSUCCINATE 200MG/5ML 100ML NG SCH ×4 (00:32→22:49)
[2020-09-16] MEDS: ACETYLCYSTEINE 100MG/ML 10% VIAL 4ML INH SCH ×3 (00:48→16:14)
[2020-09-16] MEDS: IPRATROPIUM/ALBUTEROL 0.5-3(2.5)MG/3ML NEB HHN SCH ×6 (00:48→21:22)
[2020-09-16 05:59] LABS: EOSINOPHILS % 0.2 % (0.0-5.0); HEMATOCRIT. 24.1 % (42.0-52.0); HEMOGLOBIN. 8.1 g/dL (14.0-18.0); LYMPHOCYTES % 16.6 % (20.0-50.0); MEAN CORPUSCULAR HEMOGLOBIN 32.8 pg (28.0-32.0); MEAN CORPUSCULAR VOLUME 97.6 fL (80.0-94.0); MEAN PLATELET VOLUME 10.2 fl (7.4-10.4); MONOCYTES % 11.3 % (2.0-8.0); NEUTROPHILS % 71.9 % (40.0-76.0); PLATELET 110 x1000/uL (130-400); RED BLOOD CELL COUNT 2.47 mill/uL (4.7-6.1)
[2020-09-16 06:06] LABS: PHOSPHORUS 3.4 mg/dL (2.5-4.9)
[2020-09-16] MEDS: CLOPIDOGREL 75MG TABLET PO SCH ×3 (06:15→22:50)
[2020-09-16] MEDS: SODIUM CHLORIDE 0.9% 1,000 ML IV SCH (06:21)
[2020-09-16] MEDS: BLOOD SUGAR DIAGNOSTIC STRIP TEST SCH ×4 (08:15→21:17)
[2020-09-16] MEDS: FAMOTIDINE 20MG/2ML VIAL IV SCH (08:37)
[2020-09-16] MEDS: BACITRACIN 15GM TUBE TOP SCH ×2 (08:38→16:51)
[2020-09-16] MEDS: LEVETIRACETAM 500MG PREMIX 100 ML IV SCH ×2 (08:38→20:57)
[2020-09-16] MEDS: DOCUSATE SODIUM 100MG CAPSULE PO SCH ×2 (08:41→16:49)
[2020-09-16] MEDS: ASPIRIN 81MG TABLET PO SCH (08:41)
[2020-09-16] MEDS: INSULIN LISPRO 100 UNITS/ML SUBCUT SCH ×4 (08:43→21:00)
[2020-09-16] MEDS: LACTULOSE 20G/30ML UDC PO SCH ×2 (10:00→22:50)
[2020-09-16] MEDS: HYDROCODONE/ACETAMINOPHEN 5/325MG TABLET PO PRN (12:23)
[2020-09-16] MEDS: IRON SUCROSE COMPLEX 100 MG/5 ML ML IV SCH (13:09)
[2020-09-16] MEDS ORDERED: FUROSEMIDE 40MG/4ML VIAL IVP NR (18:30)
[2020-09-16] MEDS: ATORVASTATIN CALCIUM 40MG TABLET PO SCH (21:08)
[2020-09-17] VITALS (14 sets, daily range): BP systolic 104–148; BP diastolic 52–85
[2020-09-17] MEDS: METOCLOPRAMIDE HCL 10MG/2ML VIAL IV SCH ×4 (01:26→17:42)
[2020-09-17] MEDS: MAGNESIUM/ALUMINUM HYDROXIDE/SIMETHICONE 30ML UDC PO SCH ×5 (01:30→17:42)
[2020-09-17] MEDS: IPRATROPIUM/ALBUTEROL 0.5-3(2.5)MG/3ML NEB HHN SCH ×4 (01:41→16:00)
[2020-09-17] MEDS: ACETYLCYSTEINE 100MG/ML 10% VIAL 4ML INH SCH ×3 (01:42→14:00)
[2020-09-17] MEDS: SODIUM CHLORIDE 0.9% 1,000 ML IV SCH (04:06)
[2020-09-17] MEDS: CLOPIDOGREL 75MG TABLET PO SCH ×2 (06:25→15:45)
[2020-09-17] MEDS: ERYTHROMYCIN ETHYLSUCCINATE 200MG/5ML 100ML NG SCH ×2 (06:26→15:44)
[2020-09-17 06:34] LABS: BASOPHILS % 0.2 % (0.0-2.0); EOSINOPHILS % 0.9 % (0.0-5.0); HEMATOCRIT. 24.8 % (42.0-52.0); HEMOGLOBIN. 8.3 g/dL (14.0-18.0); LYMPHOCYTES % 17.5 % (20.0-50.0); MEAN CORPUSCULAR HEMOGLOBIN 32.7 pg (28.0-32.0); MEAN CORPUSCULAR VOLUME 97.9 fL (80.0-94.0); MEAN PLATELET VOLUME 10.1 fl (7.4-10.4); MONOCYTES % 8.8 % (2.0-8.0); NEUTROPHILS % 72.6 % (40.0-76.0); PLATELET 138 x1000/uL (130-400); RED BLOOD CELL COUNT 2.53 mill/uL (4.7-6.1); RED CELL DISTRIBUTION WIDTH 13.6 % (11.6-14.6)
[2020-09-17] MEDS: BLOOD SUGAR DIAGNOSTIC STRIP TEST SCH ×3 (06:38→17:34)
[2020-09-17 06:47] LABS: PHOSPHORUS 3.4 mg/dL (2.5-4.9)
[2020-09-17] MEDS: INSULIN LISPRO 100 UNITS/ML SUBCUT SCH ×3 (07:20→17:20)
[2020-09-17] MEDS: ASPIRIN 81MG TABLET PO SCH (07:46)
[2020-09-17] MEDS: FAMOTIDINE 20MG/2ML VIAL IV SCH (07:47)
[2020-09-17] MEDS: LEVETIRACETAM 500MG PREMIX 100 ML IV SCH (07:51)
[2020-09-17] MEDS: BACITRACIN 15GM TUBE TOP SCH ×2 (07:51→17:46)
[2020-09-17] MEDS: DOCUSATE SODIUM 100MG CAPSULE PO SCH ×2 (07:52→17:42)
[2020-09-17] MEDS: HYDROCODONE/ACETAMINOPHEN 5/325MG TABLET PO PRN (09:04)
[2020-09-17] MEDS: LACTULOSE 20G/30ML UDC PO SCH (09:28)
[2020-09-17] MEDS: IRON SUCROSE COMPLEX 100 MG/5 ML ML IV SCH (12:57)
[2020-09-17] MEDS ORDERED: METOPROLOL TARTRATE 25MG TABLET PO SCH (21:00)
[2020-09-18] MEDS ORDERED: FAMOTIDINE 20MG TABLET PO SCH (06:50)
== END 2020-09-17 19:17 | DRG 233 ==
LOC: ER 15:50 → 6WST 18:50 → ENRESERV 09-08 07:36 → 3WST 09-09 09:50 → CVICU 09-12 06:36 → 3WST 09-16 17:00
PROVIDERS: ADMIT Internal Medicine; ATTEND Internal Medicine
PROC: 4A023N7 Measurement of Cardiac Sampling and Pressure, Left Heart, Percutaneous Approach (ICD-10-PCS; principal; 2020-09-09)
PROC: B2111ZZ Fluoroscopy of Multiple Coronary Arteries using Low Osmolar Contrast (ICD-10-PCS; 2020-09-09)
PROC: B54MZZA Ultrasonography of Right Upper Extremity Veins, Guidance (ICD-10-PCS; 2020-09-09)
PROC: 4A10X4Z Monitoring of Central Nervous Electrical Activity, External Approach (ICD-10-PCS; 2020-09-11)
PROC: 02100Z9 Bypass Coronary Artery, One Artery from Left Internal Mammary, Open Approach (ICD-10-PCS; 2020-09-12)
PROC: 02100Z8 Bypass Coronary Artery, One Artery from Right Internal Mammary, Open Approach (ICD-10-PCS; 2020-09-12)
PROC: 021109W Bypass Coronary Artery, Two Arteries from Aorta with Autologous Venous Tissue, Open Approach (ICD-10-PCS; 2020-09-12)
PROC: 06BQ4ZZ Excision of Left Saphenous Vein, Percutaneous Endoscopic Approach (ICD-10-PCS; 2020-09-12)
PROC: 5A1221Z Performance of Cardiac Output, Continuous (ICD-10-PCS; 2020-09-12)
DX: I25.110 Atherosclerotic heart disease of native coronary artery with unstable angina pectoris (principal); I21.4 Non-ST elevation (NSTEMI) myocardial infarction; J96.01 Acute respiratory failure with hypoxia; N17.0 Acute kidney failure with tubular necrosis; G92 Toxic encephalopathy; E44.1 Mild protein-calorie malnutrition; I13.0 Hypertensive heart and chronic kidney disease with heart failure and stage 1 through stage 4 chronic kidney disease, or unspecified chronic kidney disease; I50.42 Chronic combined systolic (congestive) and diastolic (congestive) heart failure; N39.0 Urinary tract infection, site not specified; K56.7 Ileus, unspecified; E87.1 Hypo-osmolality and hyponatremia; D64.9 Anemia, unspecified; D69.6 Thrombocytopenia, unspecified; E78.5 Hyperlipidemia, unspecified; E87.8 Other disorders of electrolyte and fluid balance, not elsewhere classified; F14.90 Cocaine use, unspecified, uncomplicated; N18.9 Chronic kidney disease, unspecified; E11.22 Type 2 diabetes mellitus with diabetic chronic kidney disease; F17.210 Nicotine dependence, cigarettes, uncomplicated; I48.0 Paroxysmal atrial fibrillation; C61 Malignant neoplasm of prostate; D63.8 Anemia in other chronic diseases classified elsewhere; Z20.822 Contact with and (suspected) exposure to COVID-19; M47.9 Spondylosis, unspecified; Z85.46 Personal history of malignant neoplasm of prostate; Z86.73 Personal history of transient ischemic attack (TIA), and cerebral infarction without residual deficits; Z95.5 Presence of coronary angioplasty implant and graft; Z79.891 Long term (current) use of opiate analgesic; Z79.899 Other long term (current) drug therapy; Z68.23 Body mass index [BMI] 23.0-23.9, adult
CPT/HCPCS: 36415; 36600; 70551; 71045; 74018; 80048; 80053; 80305; 81003; 82270; 82375; 82550; 82553; 82607; 82728; 82746; 82805; 82962; 83036; 83540; 83550; 83735; 83880; 83930; 84100; 84484; 85025; 85044; 86850; 86900; 86920; 87426; 92610; 93005; 93306; 93458; 93880; 94640; 95816; 97110; 97116; 97163; 97166; 97530; 99285; C1729; C1751; C1758; C1769; C1887; C1893; J0282; J0690; J1100; J1265; J1644; J1815; J1885; J1940; J1953; J2250; J2270; J2405; J2440; J2704; J2710; J2765; J3010; J3475; J3480; J3490; J7030; J7040; J7042; J7050; J7060; J7608; L3908; P9041; P9047; Q9967; A4315

== ENCOUNTER 2020-09-17 19:15 | Inpatient (IN) | payer MEDICARE, MEDICAID ==
[~2020-09-17] VITALS: Ht 177.8 cm; Wt 75.3 kg
[2020-09-17 19:45] VITALS: BP 144/85
[2020-09-17 20:00] VITALS: BP 116/58
[2020-09-17] MEDS ORDERED: ONDANSETRON HCL 4MG TABLET PO PRN (20:30)
[2020-09-17] MEDS ORDERED: DEXTROSE 50% WATER 50ML SYRINGE IV PRN (20:30)
[2020-09-17] MEDS ORDERED: NITROGLYCERIN 0.4MG TABLET SL SL PRN (20:30)
[2020-09-17] MEDS ORDERED: METOCLOPRAMIDE HCL 5MG TABLET PO PRN (20:30)
[2020-09-17] MEDS ORDERED: BENZONATATE 100MG CAPSULE PO PRN (20:30)
[2020-09-17] MEDS: LACTULOSE 20G/30ML UDC PO SCH (21:00)
[2020-09-17] MEDS: INSULIN LISPRO 100 UNITS/ML SUBCUT SCH (21:00)
[2020-09-17] MEDS: BACITRACIN 15GM TUBE TOP SCH (21:00)
[2020-09-17] MEDS: ATORVASTATIN CALCIUM 40MG TABLET PO SCH (21:29)
[2020-09-17] MEDS: METOPROLOL TARTRATE 25MG TABLET PO SCH (21:30)
[2020-09-17] MEDS: LEVETIRACETAM 500MG TABLET PO SCH (21:30)
[2020-09-17] MEDS: CLOPIDOGREL 75MG TABLET PO SCH (21:30)
[2020-09-17] MEDS: AMIODARONE HCL 200 MG TABLET PO SCH (21:31)
[2020-09-17] MEDS: BLOOD SUGAR DIAGNOSTIC STRIP TEST SCH (21:46)
[2020-09-17] MEDS ORDERED: ACETYLCYSTEINE 100MG/ML 10% VIAL 4ML INH SCH (22:00)
[2020-09-17] MEDS: HYDROCODONE/ACETAMINOPHEN 5/325MG TABLET PO PRN (22:39)
[2020-09-17] MEDS: MAGNESIUM/ALUMINUM HYDROXIDE/SIMETHICONE 30ML UDC PO SCH (23:15)
[2020-09-18] MEDS: ERYTHROMYCIN ETHYLSUCCINATE 200MG/5ML 100ML PO SCH ×2 (00:25→06:05)
[2020-09-18] MEDS: IPRATROPIUM/ALBUTEROL 0.5-3(2.5)MG/3ML NEB HHN SCH ×3 (01:24→16:16)
[2020-09-18] MEDS: MAGNESIUM/ALUMINUM HYDROXIDE/SIMETHICONE 30ML UDC PO SCH ×6 (04:00→23:57)
[2020-09-18] MEDS: BLOOD SUGAR DIAGNOSTIC STRIP TEST SCH ×4 (06:05→20:09)
[2020-09-18] MEDS: CLOPIDOGREL 75MG TABLET PO SCH ×3 (06:05→22:05)
[2020-09-18] MEDS ORDERED: FAMOTIDINE 20MG TABLET PO ONE (07:00)
[2020-09-18 07:58] VITALS: BP 126/64
[2020-09-18] MEDS: LACTULOSE 20G/30ML UDC PO SCH ×2 (08:52→20:08)
[2020-09-18] MEDS: HYDROCODONE/ACETAMINOPHEN 5/325MG TABLET PO PRN (08:53)
[2020-09-18] MEDS: DOCUSATE SODIUM 100MG CAPSULE PO SCH ×2 (08:53→17:02)
[2020-09-18] MEDS: AMIODARONE HCL 200 MG TABLET PO SCH ×2 (08:53→20:09)
[2020-09-18] MEDS: ASPIRIN 81MG TABLET PO SCH (08:53)
[2020-09-18] MEDS: METOPROLOL TARTRATE 25MG TABLET PO SCH ×2 (08:54→20:09)
[2020-09-18] MEDS: LEVETIRACETAM 500MG TABLET PO SCH ×2 (08:54→20:08)
[2020-09-18] MEDS: INSULIN LISPRO 100 UNITS/ML SUBCUT SCH ×4 (08:55→20:10)
[2020-09-18] MEDS: BACITRACIN 15GM TUBE TOP SCH ×2 (09:00→20:10)
[2020-09-18] MEDS ORDERED: NITROGLYCERIN 0.1MG/HR PATCH TOP SCH (10:00)
[2020-09-18] MEDS: CHLORPROMAZINE HCL 25 MG TABLET PO PRN ×2 (16:00→22:06)
[2020-09-18] MEDS: LAMOTRIGINE 25MG TABLET PO SCH (16:00)
[2020-09-18 20:00] VITALS: BP 107/57
[2020-09-18] MEDS: ATORVASTATIN CALCIUM 40MG TABLET PO SCH (20:08)
[2020-09-18] MEDS: ERYTHROMYCIN ETHYLSUCCINATE 400 MG/5 ML PO SCH (22:04)
[2020-09-19] MEDS: IPRATROPIUM/ALBUTEROL 0.5-3(2.5)MG/3ML NEB HHN SCH ×3 (01:04→13:31)
[2020-09-19] MEDS: MAGNESIUM/ALUMINUM HYDROXIDE/SIMETHICONE 30ML UDC PO SCH ×6 (03:38→23:03)
[2020-09-19] MEDS: BLOOD SUGAR DIAGNOSTIC STRIP TEST SCH ×4 (06:00→21:03)
[2020-09-19] MEDS: ERYTHROMYCIN ETHYLSUCCINATE 400 MG/5 ML PO SCH ×3 (06:00→21:50)
[2020-09-19] MEDS: CLOPIDOGREL 75MG TABLET PO SCH ×3 (06:00→21:50)
[2020-09-19] MEDS: CHLORPROMAZINE HCL 25 MG TABLET PO PRN ×3 (06:00→21:03)
[2020-09-19] MEDS: INSULIN LISPRO 100 UNITS/ML SUBCUT SCH ×4 (06:00→21:14)
[2020-09-19 07:59] LABS: CLARITY URINE CLOUDY (CLEAR); COLOR URINE YELLOW (YELLOW); KETONES URINE NEGATIVE (NEGATIVE); LEUKOCYTE ESTERASE URINE NEGATIVE (NEGATIVE); NITRITE URINE NEGATIVE (NEGATIVE); OCCULT BLOOD URINE NEGATIVE (NEGATIVE); PROTEIN URINE TRACE (NEGATIVE); SPECIFIC GRAVITY URINE 1.014 (1.005-1.030)
[2020-09-19 08:00] VITALS: BP 139/65
[2020-09-19] MEDS: AMIODARONE HCL 200 MG TABLET PO SCH ×2 (08:24→21:02)
[2020-09-19] MEDS: ASPIRIN 81MG TABLET PO SCH (08:25)
[2020-09-19] MEDS: METOPROLOL TARTRATE 25MG TABLET PO SCH ×2 (08:25→21:02)
[2020-09-19] MEDS: LEVETIRACETAM 500MG TABLET PO SCH ×2 (08:25→21:02)
[2020-09-19] MEDS: HYDROCODONE/ACETAMINOPHEN 5/325MG TABLET PO PRN (08:26)
[2020-09-19] MEDS: LAMOTRIGINE 25MG TABLET PO SCH (08:26)
[2020-09-19] MEDS: BACITRACIN 15GM TUBE TOP SCH ×2 (08:27→21:09)
[2020-09-19] MEDS: DOCUSATE SODIUM 100MG CAPSULE PO SCH ×3 (08:54→16:53)
[2020-09-19] MEDS: LACTULOSE 20G/30ML UDC PO SCH ×2 (08:54→21:00)
[2020-09-19 20:00] VITALS: BP 121/62
[2020-09-19] MEDS: ATORVASTATIN CALCIUM 40MG TABLET PO SCH (21:02)
[2020-09-19 23:06] VITALS: BP 112/64
[2020-09-19] MEDS: ZOLPIDEM TARTRATE 5MG TABLET PO PRN (23:12)
[2020-09-20] MEDS: IPRATROPIUM/ALBUTEROL 0.5-3(2.5)MG/3ML NEB HHN SCH ×3 (01:43→14:00)
[2020-09-20] MEDS: MAGNESIUM/ALUMINUM HYDROXIDE/SIMETHICONE 30ML UDC PO SCH ×5 (04:46→21:00)
[2020-09-20] MEDS: CHLORPROMAZINE HCL 25 MG TABLET PO PRN ×2 (05:44→21:05)
[2020-09-20] MEDS: CLOPIDOGREL 75MG TABLET PO SCH ×3 (05:44→21:05)
[2020-09-20 05:45] VITALS: BP 134/67
[2020-09-20] MEDS: BLOOD SUGAR DIAGNOSTIC STRIP TEST SCH ×4 (05:45→21:04)
[2020-09-20] MEDS: ERYTHROMYCIN ETHYLSUCCINATE 400 MG/5 ML PO SCH ×3 (05:45→21:05)
[2020-09-20] MEDS: INSULIN LISPRO 100 UNITS/ML SUBCUT SCH ×4 (05:45→21:00)
[2020-09-20 06:55] VITALS: BP 103/64
[2020-09-20 08:00] VITALS: BP 110/56
[2020-09-20] MEDS: LEVETIRACETAM 500MG TABLET PO SCH ×2 (08:41→21:03)
[2020-09-20] MEDS: LACTULOSE 20G/30ML UDC PO SCH ×2 (09:00→21:00)
[2020-09-20] MEDS: LAMOTRIGINE 25MG TABLET PO SCH (09:42)
[2020-09-20] MEDS: DOCUSATE SODIUM 100MG CAPSULE PO SCH ×2 (09:42→16:58)
[2020-09-20] MEDS: ASPIRIN 81MG TABLET PO SCH (09:42)
[2020-09-20] MEDS: AMIODARONE HCL 200 MG TABLET PO SCH ×2 (09:44→21:04)
[2020-09-20] MEDS: METOPROLOL TARTRATE 25MG TABLET PO SCH ×2 (09:44→21:00)
[2020-09-20] MEDS: BACITRACIN 15GM TUBE TOP SCH ×2 (09:45→21:05)
[2020-09-20] MEDS: HYDROCODONE/ACETAMINOPHEN 5/325MG TABLET PO PRN ×2 (09:47→14:52)
[2020-09-20 15:07] LABS: BASOPHILS % 0.2 % (0.0-2.0); HEMATOCRIT. 25.9 % (42.0-52.0); HEMOGLOBIN. 8.7 g/dL (14.0-18.0); LYMPHOCYTES % 22.8 % (20.0-50.0); MEAN CORPUSCULAR HEMOGLOBIN 32.9 pg (28.0-32.0); MEAN CORPUSCULAR VOLUME 97.7 fL (80.0-94.0); MEAN PLATELET VOLUME 10.1 fl (7.4-10.4); MONOCYTES % 10.9 % (2.0-8.0); NEUTROPHILS % 64.1 % (40.0-76.0); PLATELET 204 x1000/uL (130-400); RED BLOOD CELL COUNT 2.65 mill/uL (4.7-6.1); RED CELL DISTRIBUTION WIDTH 13.7 % (11.6-14.6)
[2020-09-20] MEDS: OXYCODONE HCL/ACETAMINOPHEN 5/325MG TABLET PO PRN ×2 (17:00→22:46)
[2020-09-20 20:00] VITALS: BP 101/57
[2020-09-20] MEDS: ATORVASTATIN CALCIUM 40MG TABLET PO SCH (21:03)
[2020-09-21] MEDS: IPRATROPIUM/ALBUTEROL 0.5-3(2.5)MG/3ML NEB HHN SCH ×3 (00:20→16:07)
[2020-09-21] MEDS: ZOLPIDEM TARTRATE 5MG TABLET PO PRN (00:35)
[2020-09-21] MEDS: MAGNESIUM/ALUMINUM HYDROXIDE/SIMETHICONE 30ML UDC PO SCH ×6 (00:35→21:52)
[2020-09-21] MEDS: CLOPIDOGREL 75MG TABLET PO SCH ×2 (05:41→13:26)
[2020-09-21] MEDS: ERYTHROMYCIN ETHYLSUCCINATE 400 MG/5 ML PO SCH ×2 (05:41→13:26)
[2020-09-21] MEDS: CHLORPROMAZINE HCL 25 MG TABLET PO PRN ×2 (05:41→13:29)
[2020-09-21] MEDS: BLOOD SUGAR DIAGNOSTIC STRIP TEST SCH ×4 (05:41→21:51)
[2020-09-21] MEDS: INSULIN LISPRO 100 UNITS/ML SUBCUT SCH ×4 (05:42→21:00)
[2020-09-21 07:50] LABS: BASOPHILS % 0.3 % (0.0-2.0); EOSINOPHILS % 2.1 % (0.0-5.0); HEMOGLOBIN. 8.4 g/dL (14.0-18.0); LYMPHOCYTES % 26.3 % (20.0-50.0); MEAN CORPUSCULAR VOLUME 98.9 fL (80.0-94.0); MEAN PLATELET VOLUME 9.9 fl (7.4-10.4); MONOCYTES % 10.5 % (2.0-8.0); NEUTROPHILS % 60.8 % (40.0-76.0); PLATELET 184 x1000/uL (130-400); RED BLOOD CELL COUNT 2.63 mill/uL (4.7-6.1); RED CELL DISTRIBUTION WIDTH 13.6 % (11.6-14.6)
[2020-09-21 07:51] LABS: CHLORIDE 100 mEq/L (98-107)
[2020-09-21 07:57] LABS: PHOSPHORUS 4.4 mg/dL (2.5-4.9)
[2020-09-21 08:00] VITALS: BP 121/62
[2020-09-21] MEDS: ASPIRIN 81MG TABLET PO SCH (08:28)
[2020-09-21] MEDS: AMIODARONE HCL 200 MG TABLET PO SCH ×2 (08:29→21:53)
[2020-09-21] MEDS: LAMOTRIGINE 25MG TABLET PO SCH (08:30)
[2020-09-21] MEDS: DOCUSATE SODIUM 100MG CAPSULE PO SCH ×2 (08:30→16:46)
[2020-09-21] MEDS: LEVETIRACETAM 500MG TABLET PO SCH ×2 (08:30→21:53)
[2020-09-21] MEDS: METOPROLOL TARTRATE 25MG TABLET PO SCH ×2 (08:30→21:00)
[2020-09-21] MEDS: BACITRACIN 15GM TUBE TOP SCH ×2 (08:32→21:54)
[2020-09-21] MEDS: LACTULOSE 20G/30ML UDC PO SCH ×2 (08:33→21:52)
[2020-09-21 10:00] VITALS: BP 134/78
[2020-09-21] MEDS ORDERED: POTASSIUM CHLORIDE 20MEQ TABLET SR PO NR (11:30)
[2020-09-21 20:00] VITALS: BP 110/56
[2020-09-21] MEDS: ATORVASTATIN CALCIUM 40MG TABLET PO SCH (21:53)
[2020-09-22] MEDS: CLOPIDOGREL 75MG TABLET PO SCH ×4 (00:25→22:47)
[2020-09-22] MEDS: ERYTHROMYCIN ETHYLSUCCINATE 400 MG/5 ML PO SCH ×4 (00:26→22:17)
[2020-09-22] MEDS: IPRATROPIUM/ALBUTEROL 0.5-3(2.5)MG/3ML NEB HHN SCH ×3 (01:26→16:16)
[2020-09-22] MEDS: BLOOD SUGAR DIAGNOSTIC STRIP TEST SCH ×4 (05:53→21:00)
[2020-09-22] MEDS: INSULIN LISPRO 100 UNITS/ML SUBCUT SCH ×4 (05:53→21:00)
[2020-09-22] MEDS: MAGNESIUM/ALUMINUM HYDROXIDE/SIMETHICONE 30ML UDC PO SCH ×6 (06:13→21:24)
[2020-09-22 06:26] LABS: BASOPHILS % 0.2 % (0.0-2.0); EOSINOPHILS % 1.9 % (0.0-5.0); HEMATOCRIT. 25.7 % (42.0-52.0); HEMOGLOBIN. 8.2 g/dL (14.0-18.0); LYMPHOCYTES % 16.9 % (20.0-50.0); MEAN CORPUSCULAR HEMOGLOBIN 31.5 pg (28.0-32.0); MEAN CORPUSCULAR VOLUME 98.4 fL (80.0-94.0); MEAN PLATELET VOLUME 10.2 fl (7.4-10.4); MONOCYTES % 9.6 % (2.0-8.0); NEUTROPHILS % 71.4 % (40.0-76.0); PLATELET 167 x1000/uL (130-400); RED BLOOD CELL COUNT 2.61 mill/uL (4.7-6.1); RED CELL DISTRIBUTION WIDTH 13.8 % (11.6-14.6)
[2020-09-22 08:00] VITALS: BP 140/60
[2020-09-22] MEDS: LAMOTRIGINE 25MG TABLET PO SCH (08:30)
[2020-09-22] MEDS: AMIODARONE HCL 200 MG TABLET PO SCH ×2 (08:30→21:00)
[2020-09-22] MEDS: LEVETIRACETAM 500MG TABLET PO SCH ×2 (08:30→21:25)
[2020-09-22] MEDS: ASPIRIN 81MG TABLET PO SCH (08:31)
[2020-09-22] MEDS: DOCUSATE SODIUM 100MG CAPSULE PO SCH ×2 (08:31→17:10)
[2020-09-22] MEDS: METOPROLOL TARTRATE 25MG TABLET PO SCH ×2 (08:31→21:28)
[2020-09-22] MEDS: LACTULOSE 20G/30ML UDC PO SCH (08:35)
[2020-09-22] MEDS: BACITRACIN 15GM TUBE TOP SCH ×2 (08:38→21:34)
[2020-09-22] MEDS: ONDANSETRON 4MG ODT PO PRN ×2 (08:41→15:41)
[2020-09-22] MEDS: CHLORPROMAZINE HCL 25 MG TABLET PO PRN ×2 (09:39→22:48)
[2020-09-22] MEDS ORDERED: LACTULOSE 20G/30ML UDC PO PRN (15:30)
[2020-09-22] MEDS: METOCLOPRAMIDE HCL 5MG TABLET PO SCH ×2 (15:42→22:47)
[2020-09-22] MEDS: FERROUS SULFATE 300MG/5ML UDC PO SCH (17:10)
[2020-09-22 20:00] VITALS: BP 111/52
[2020-09-22] MEDS: ATORVASTATIN CALCIUM 40MG TABLET PO SCH (21:26)
[2020-09-23] MEDS: IPRATROPIUM/ALBUTEROL 0.5-3(2.5)MG/3ML NEB HHN SCH ×3 (02:05→16:16)
[2020-09-23] MEDS: MAGNESIUM/ALUMINUM HYDROXIDE/SIMETHICONE 30ML UDC PO SCH ×5 (04:44→21:41)
[2020-09-23] MEDS: METOCLOPRAMIDE HCL 5MG TABLET PO SCH ×4 (04:45→21:44)
[2020-09-23] MEDS: CHLORPROMAZINE HCL 25 MG TABLET PO PRN ×2 (05:09→14:17)
[2020-09-23] MEDS: CLOPIDOGREL 75MG TABLET PO SCH ×3 (06:23→22:06)
[2020-09-23] MEDS: BLOOD SUGAR DIAGNOSTIC STRIP TEST SCH ×4 (06:48→21:47)
[2020-09-23 07:19] LABS: BASOPHILS % 0.3 % (0.0-2.0); EOSINOPHILS % 2.6 % (0.0-5.0); HEMATOCRIT. 24.4 % (42.0-52.0); LYMPHOCYTES % 22.4 % (20.0-50.0); MEAN CORPUSCULAR HEMOGLOBIN 31.9 pg (28.0-32.0); MEAN CORPUSCULAR VOLUME 97.7 fL (80.0-94.0); MEAN PLATELET VOLUME 10.3 fl (7.4-10.4); MONOCYTES % 8.9 % (2.0-8.0); NEUTROPHILS % 65.8 % (40.0-76.0); PLATELET 164 x1000/uL (130-400)
[2020-09-23 08:00] VITALS: BP 119/56
[2020-09-23] MEDS: LEVETIRACETAM 500MG TABLET PO SCH ×2 (08:50→21:42)
[2020-09-23] MEDS: FERROUS SULFATE 300MG/5ML UDC PO SCH ×3 (08:50→16:14)
[2020-09-23] MEDS: ONDANSETRON 4MG ODT PO PRN ×2 (08:50→22:05)
[2020-09-23] MEDS: BACITRACIN 15GM TUBE TOP SCH ×2 (08:50→21:51)
[2020-09-23] MEDS: AMIODARONE HCL 200 MG TABLET PO SCH ×2 (08:51→21:43)
[2020-09-23] MEDS: ASPIRIN 81MG TABLET PO SCH (08:51)
[2020-09-23] MEDS: LAMOTRIGINE 25MG TABLET PO SCH (08:51)
[2020-09-23] MEDS: DOCUSATE SODIUM 100MG CAPSULE PO SCH ×2 (08:51→16:15)
[2020-09-23] MEDS: METOPROLOL TARTRATE 25MG TABLET PO SCH ×2 (08:52→21:46)
[2020-09-23] MEDS: INSULIN LISPRO 100 UNITS/ML SUBCUT SCH ×4 (08:52→21:30)
[2020-09-23] MEDS ORDERED: NEOMYCIN/BACITRACIN/POLYMYXIN OINT 14GM TOP PRN (17:00)
[2020-09-23 20:00] VITALS: BP 112/56
[2020-09-23] MEDS: ATORVASTATIN CALCIUM 40MG TABLET PO SCH (21:47)
[2020-09-24] MEDS: IPRATROPIUM/ALBUTEROL 0.5-3(2.5)MG/3ML NEB HHN SCH ×3 (00:12→17:44)
[2020-09-24] MEDS: METOCLOPRAMIDE HCL 5MG TABLET PO SCH ×4 (03:30→21:27)
[2020-09-24] MEDS: MAGNESIUM/ALUMINUM HYDROXIDE/SIMETHICONE 30ML UDC PO SCH ×6 (04:00→21:26)
[2020-09-24] MEDS: CLOPIDOGREL 75MG TABLET PO SCH (06:00)
[2020-09-24] MEDS: BLOOD SUGAR DIAGNOSTIC STRIP TEST SCH ×4 (06:30→21:28)
[2020-09-24 08:00] VITALS: BP 148/49
[2020-09-24 08:53] LABS: BASOPHILS % 0.3 % (0.0-2.0); EOSINOPHILS % 2.8 % (0.0-5.0); HEMATOCRIT. 24.7 % (42.0-52.0); HEMOGLOBIN. 8.2 g/dL (14.0-18.0); LYMPHOCYTES % 24.1 % (20.0-50.0); MEAN CORPUSCULAR HEMOGLOBIN 31.4 pg (28.0-32.0); MEAN CORPUSCULAR VOLUME 94.4 fL (80.0-94.0); MEAN PLATELET VOLUME 10.1 fl (7.4-10.4); MONOCYTES % 6.7 % (2.0-8.0); NEUTROPHILS % 66.1 % (40.0-76.0); PLATELET 180 x1000/uL (130-400); RED BLOOD CELL COUNT 2.62 mill/uL (4.7-6.1); RED CELL DISTRIBUTION WIDTH 14.4 % (11.6-14.6)
[2020-09-24] MEDS: INSULIN LISPRO 100 UNITS/ML SUBCUT SCH ×4 (09:00→21:00)
[2020-09-24] MEDS: FERROUS SULFATE 300MG/5ML UDC PO SCH ×3 (09:22→16:28)
[2020-09-24] MEDS: LAMOTRIGINE 25MG TABLET PO SCH (09:22)
[2020-09-24] MEDS: LEVETIRACETAM 500MG TABLET PO SCH ×2 (09:22→21:27)
[2020-09-24] MEDS: AMIODARONE HCL 200 MG TABLET PO SCH ×2 (09:23→21:27)
[2020-09-24] MEDS: ASPIRIN 81MG TABLET PO SCH (09:23)
[2020-09-24] MEDS: METOPROLOL TARTRATE 25MG TABLET PO SCH ×2 (09:23→21:28)
[2020-09-24] MEDS: DOCUSATE SODIUM 100MG CAPSULE PO SCH ×2 (09:23→16:28)
[2020-09-24] MEDS: CHLORPROMAZINE HCL 25 MG TABLET PO PRN (09:23)
[2020-09-24] MEDS: BACITRACIN 15GM TUBE TOP SCH ×2 (09:24→21:33)
[2020-09-24] MEDS: ACETAMINOPHEN 325MG TABLET PO PRN ×2 (09:24→21:58)
[2020-09-24] MEDS ORDERED: LACTULOSE 20G/30ML UDC PO PRN (13:00)
[2020-09-24] MEDS ORDERED: VISCOUS LIDOCAINE 2% 15 ML UDC MM PRN (15:00)
[2020-09-24 20:00] VITALS: BP 126/65
[2020-09-24] MEDS: ZOLPIDEM TARTRATE 5MG TABLET PO PRN (21:29)
[2020-09-24] MEDS: ATORVASTATIN CALCIUM 40MG TABLET PO SCH (21:29)
[2020-09-25] MEDS: IPRATROPIUM/ALBUTEROL 0.5-3(2.5)MG/3ML NEB HHN SCH ×3 (00:35→16:00)
[2020-09-25] MEDS: METOCLOPRAMIDE HCL 5MG TABLET PO SCH ×4 (03:30→21:46)
[2020-09-25] MEDS: MAGNESIUM/ALUMINUM HYDROXIDE/SIMETHICONE 30ML UDC PO SCH ×6 (04:00→21:44)
[2020-09-25 06:32] LABS: BASOPHILS % 0.4 % (0.0-2.0); EOSINOPHILS % 3.2 % (0.0-5.0); HEMATOCRIT. 25.4 % (42.0-52.0); HEMOGLOBIN. 8.5 g/dL (14.0-18.0); LYMPHOCYTES % 27.4 % (20.0-50.0); MEAN CORPUSCULAR VOLUME 95.3 fL (80.0-94.0); MEAN PLATELET VOLUME 10.2 fl (7.4-10.4); MONOCYTES % 7.4 % (2.0-8.0); NEUTROPHILS % 61.6 % (40.0-76.0); PLATELET 200 x1000/uL (130-400); RED BLOOD CELL COUNT 2.67 mill/uL (4.7-6.1); RED CELL DISTRIBUTION WIDTH 14.6 % (11.6-14.6)
[2020-09-25] MEDS: BLOOD SUGAR DIAGNOSTIC STRIP TEST SCH ×4 (06:40→21:50)
[2020-09-25] MEDS: ACETAMINOPHEN 325MG TABLET PO PRN (06:42)
[2020-09-25 07:49] VITALS: BP 119/62
[2020-09-25] MEDS: FERROUS SULFATE 300MG/5ML UDC PO SCH ×3 (08:15→16:42)
[2020-09-25] MEDS: ASPIRIN 81MG TABLET PO SCH (08:16)
[2020-09-25] MEDS: LAMOTRIGINE 25MG TABLET PO SCH (08:16)
[2020-09-25] MEDS: METOPROLOL TARTRATE 25MG TABLET PO SCH ×2 (08:16→21:50)
[2020-09-25] MEDS: CLOPIDOGREL 75MG TABLET PO SCH (08:16)
[2020-09-25] MEDS: AMIODARONE HCL 200 MG TABLET PO SCH (08:16)
[2020-09-25] MEDS: LEVETIRACETAM 500MG TABLET PO SCH ×2 (08:16→21:46)
[2020-09-25] MEDS: DOCUSATE SODIUM 100MG CAPSULE PO SCH ×2 (08:17→16:42)
[2020-09-25] MEDS: CHLORPROMAZINE HCL 25 MG TABLET PO PRN (08:29)
[2020-09-25] MEDS: BACITRACIN 15GM TUBE TOP SCH ×2 (08:30→21:50)
[2020-09-25] MEDS: INSULIN LISPRO 100 UNITS/ML SUBCUT SCH ×4 (09:00→21:43)
[2020-09-25] MEDS ORDERED: VISCOUS LIDOCAINE 2% 15 ML UDC MM PRN (12:21)
[2020-09-25 20:00] VITALS: BP 128/62
[2020-09-25] MEDS: ATORVASTATIN CALCIUM 40MG TABLET PO SCH (21:47)
[2020-09-26] MEDS: MAGNESIUM/ALUMINUM HYDROXIDE/SIMETHICONE 30ML UDC PO SCH ×6 (00:06→20:51)
[2020-09-26] MEDS: IPRATROPIUM/ALBUTEROL 0.5-3(2.5)MG/3ML NEB HHN SCH ×3 (00:30→23:50)
[2020-09-26] MEDS: METOCLOPRAMIDE HCL 5MG TABLET PO SCH ×4 (04:13→21:15)
[2020-09-26] MEDS: BLOOD SUGAR DIAGNOSTIC STRIP TEST SCH ×4 (06:14→20:54)
[2020-09-26 08:01] VITALS: BP 124/63
[2020-09-26] MEDS: INSULIN LISPRO 100 UNITS/ML SUBCUT SCH ×4 (09:00→21:52)
[2020-09-26] MEDS: DOCUSATE SODIUM 100MG CAPSULE PO SCH ×2 (09:00→17:00)
[2020-09-26 10:23] LABS: BASOPHILS % 0.3 % (0.0-2.0); EOSINOPHILS % 3.4 % (0.0-5.0); HEMATOCRIT. 26.8 % (42.0-52.0); HEMOGLOBIN. 8.9 g/dL (14.0-18.0); LYMPHOCYTES % 28.3 % (20.0-50.0); MEAN CORPUSCULAR HEMOGLOBIN 31.2 pg (28.0-32.0); MEAN CORPUSCULAR VOLUME 93.4 fL (80.0-94.0); MEAN PLATELET VOLUME 10.3 fl (7.4-10.4); MONOCYTES % 6.5 % (2.0-8.0); NEUTROPHILS % 61.5 % (40.0-76.0); PLATELET 289 x1000/uL (130-400); RED BLOOD CELL COUNT 2.87 mill/uL (4.7-6.1); RED CELL DISTRIBUTION WIDTH 14.8 % (11.6-14.6)
[2020-09-26] MEDS: LAMOTRIGINE 25MG TABLET PO SCH (10:50)
[2020-09-26] MEDS: LEVETIRACETAM 500MG TABLET PO SCH ×2 (10:50→20:54)
[2020-09-26] MEDS: FERROUS SULFATE 300MG/5ML UDC PO SCH ×3 (10:50→18:02)
[2020-09-26] MEDS: METOPROLOL TARTRATE 25MG TABLET PO SCH ×2 (10:51→20:54)
[2020-09-26] MEDS: AMIODARONE HCL 200 MG TABLET PO SCH (10:51)
[2020-09-26] MEDS: CLOPIDOGREL 75MG TABLET PO SCH (10:52)
[2020-09-26] MEDS: BACITRACIN 15GM TUBE TOP SCH ×2 (10:52→21:15)
[2020-09-26] MEDS: ASPIRIN 81MG TABLET PO SCH (10:52)
[2020-09-26 20:00] VITALS: BP 117/52
[2020-09-26] MEDS: ATORVASTATIN CALCIUM 40MG TABLET PO SCH (20:54)
[2020-09-26] MEDS: ZOLPIDEM TARTRATE 5MG TABLET PO PRN (21:15)
[2020-09-27] MEDS: METOCLOPRAMIDE HCL 5MG TABLET PO SCH ×4 (04:10→21:19)
[2020-09-27] MEDS: MAGNESIUM/ALUMINUM HYDROXIDE/SIMETHICONE 30ML UDC PO SCH ×6 (04:10→21:18)
[2020-09-27] MEDS: BLOOD SUGAR DIAGNOSTIC STRIP TEST SCH ×4 (05:51→21:19)
[2020-09-27] MEDS: INSULIN LISPRO 100 UNITS/ML SUBCUT SCH ×4 (05:52→21:00)
[2020-09-27] MEDS: IPRATROPIUM/ALBUTEROL 0.5-3(2.5)MG/3ML NEB HHN SCH ×3 (07:32→17:33)
[2020-09-27 08:00] VITALS: BP 137/73
[2020-09-27] MEDS: DOCUSATE SODIUM 100MG CAPSULE PO SCH ×2 (11:21→17:32)
[2020-09-27] MEDS: ASPIRIN 81MG TABLET PO SCH (11:21)
[2020-09-27] MEDS: LEVETIRACETAM 500MG TABLET PO SCH ×2 (11:22→21:18)
[2020-09-27] MEDS: FERROUS SULFATE 300MG/5ML UDC PO SCH ×3 (11:22→17:32)
[2020-09-27] MEDS: LAMOTRIGINE 25MG TABLET PO SCH (11:23)
[2020-09-27] MEDS: CLOPIDOGREL 75MG TABLET PO SCH (11:25)
[2020-09-27] MEDS: AMIODARONE HCL 200 MG TABLET PO SCH (11:25)
[2020-09-27] MEDS: METOPROLOL TARTRATE 25MG TABLET PO SCH ×2 (11:25→21:19)
[2020-09-27] MEDS: BACITRACIN 15GM TUBE TOP SCH ×2 (11:26→21:19)
[2020-09-27 20:00] VITALS: BP 124/61
[2020-09-27] MEDS: ATORVASTATIN CALCIUM 40MG TABLET PO SCH (21:18)
[2020-09-27] MEDS: ZOLPIDEM TARTRATE 5MG TABLET PO PRN (21:20)
[2020-09-28] MEDS: IPRATROPIUM/ALBUTEROL 0.5-3(2.5)MG/3ML NEB HHN SCH ×3 (01:27→16:21)
[2020-09-28] MEDS: METOCLOPRAMIDE HCL 5MG TABLET PO SCH ×4 (04:06→21:47)
[2020-09-28] MEDS: MAGNESIUM/ALUMINUM HYDROXIDE/SIMETHICONE 30ML UDC PO SCH ×6 (04:06→21:44)
[2020-09-28] MEDS: BLOOD SUGAR DIAGNOSTIC STRIP TEST SCH ×4 (05:44→21:00)
[2020-09-28] MEDS: INSULIN LISPRO 100 UNITS/ML SUBCUT SCH ×4 (06:11→21:00)
[2020-09-28 08:14] VITALS: BP 108/58
[2020-09-28] MEDS: ASPIRIN 81MG TABLET PO SCH (08:52)
[2020-09-28] MEDS: LEVETIRACETAM 500MG TABLET PO SCH ×2 (08:53→21:46)
[2020-09-28] MEDS: FERROUS SULFATE 300MG/5ML UDC PO SCH ×3 (08:53→19:07)
[2020-09-28] MEDS: DOCUSATE SODIUM 100MG CAPSULE PO SCH ×2 (08:53→17:00)
[2020-09-28] MEDS: METOPROLOL TARTRATE 25MG TABLET PO SCH ×2 (08:54→21:46)
[2020-09-28] MEDS: LAMOTRIGINE 25MG TABLET PO SCH (08:54)
[2020-09-28] MEDS: AMIODARONE HCL 200 MG TABLET PO SCH (08:56)
[2020-09-28] MEDS: CLOPIDOGREL 75MG TABLET PO SCH (08:56)
[2020-09-28] MEDS: ACETAMINOPHEN 325MG TABLET PO PRN (08:57)
[2020-09-28] MEDS: BACITRACIN 15GM TUBE TOP SCH ×2 (09:00→21:00)
[2020-09-28 20:00] VITALS: BP 118/64
[2020-09-28] MEDS: ATORVASTATIN CALCIUM 40MG TABLET PO SCH (21:44)
[2020-09-28] MEDS: ZOLPIDEM TARTRATE 5MG TABLET PO PRN (22:57)
[2020-09-29] MEDS: IPRATROPIUM/ALBUTEROL 0.5-3(2.5)MG/3ML NEB HHN SCH ×4 (01:01→22:00)
[2020-09-29] MEDS: METOCLOPRAMIDE HCL 5MG TABLET PO SCH ×4 (04:00→21:34)
[2020-09-29] MEDS: MAGNESIUM/ALUMINUM HYDROXIDE/SIMETHICONE 30ML UDC PO SCH ×7 (04:02→21:34)
[2020-09-29] MEDS: BLOOD SUGAR DIAGNOSTIC STRIP TEST SCH ×4 (06:30→21:00)
[2020-09-29] MEDS: INSULIN LISPRO 100 UNITS/ML SUBCUT SCH ×4 (07:14→21:00)
[2020-09-29 08:00] VITALS: BP 118/66
[2020-09-29] MEDS: ASPIRIN 81MG TABLET PO SCH (09:27)
[2020-09-29] MEDS: LAMOTRIGINE 25MG TABLET PO SCH (09:27)
[2020-09-29] MEDS: DOCUSATE SODIUM 100MG CAPSULE PO SCH ×2 (09:27→17:00)
[2020-09-29] MEDS: CLOPIDOGREL 75MG TABLET PO SCH (09:28)
[2020-09-29] MEDS: METOPROLOL TARTRATE 25MG TABLET PO SCH ×2 (09:28→21:00)
[2020-09-29] MEDS: LEVETIRACETAM 500MG TABLET PO SCH ×2 (09:28→21:34)
[2020-09-29] MEDS: AMIODARONE HCL 200 MG TABLET PO SCH (09:28)
[2020-09-29] MEDS: FERROUS SULFATE 300MG/5ML UDC PO SCH ×3 (09:29→17:26)
[2020-09-29] MEDS: BACITRACIN 15GM TUBE TOP SCH ×2 (09:55→21:42)
[2020-09-29] MEDS ORDERED: AMI2 PO (15:46)
[2020-09-29] MEDS ORDERED: KEPP500 PO (15:46)
[2020-09-29] MEDS ORDERED: CLOP75TA15 PO (15:46)
[2020-09-29] MEDS ORDERED: FERR325T6 MT (15:46)
[2020-09-29] MEDS ORDERED: ASPI-1160 PO (15:46)
[2020-09-29] MEDS ORDERED: METO25TA6 PO (15:46)
[2020-09-29] MEDS ORDERED: DOCU-150 PO (15:46)
[2020-09-29] MEDS ORDERED: LIP40 PO (15:46)
[2020-09-29 20:00] VITALS: BP 108/59
[2020-09-29] MEDS: ATORVASTATIN CALCIUM 40MG TABLET PO SCH (21:34)
[2020-09-29] MEDS ORDERED: ZOLPIDEM TARTRATE 5MG TABLET PO PRN (22:00)
[2020-09-30] MEDS: METOCLOPRAMIDE HCL 5MG TABLET PO SCH ×3 (03:26→15:30)
[2020-09-30] MEDS: MAGNESIUM/ALUMINUM HYDROXIDE/SIMETHICONE 30ML UDC PO SCH ×4 (04:00→12:00)
[2020-09-30] MEDS: BLOOD SUGAR DIAGNOSTIC STRIP TEST SCH ×2 (06:59→11:45)
[2020-09-30 07:32] VITALS: BP 135/60
[2020-09-30 08:00] VITALS: BP 111/73
[2020-09-30] MEDS: INSULIN LISPRO 100 UNITS/ML SUBCUT SCH ×2 (09:00→13:12)
[2020-09-30] MEDS: DOCUSATE SODIUM 100MG CAPSULE PO SCH (09:00)
[2020-09-30] MEDS: AMIODARONE HCL 200 MG TABLET PO SCH (09:04)
[2020-09-30] MEDS: LEVETIRACETAM 500MG TABLET PO SCH (09:04)
[2020-09-30] MEDS: FERROUS SULFATE 300MG/5ML UDC PO SCH ×2 (09:04→13:00)
[2020-09-30] MEDS: ASPIRIN 81MG TABLET PO SCH (09:04)
[2020-09-30] MEDS: LAMOTRIGINE 25MG TABLET PO SCH (09:04)
[2020-09-30] MEDS: METOPROLOL TARTRATE 25MG TABLET PO SCH (09:05)
[2020-09-30] MEDS: CLOPIDOGREL 75MG TABLET PO SCH (09:05)
[2020-09-30] MEDS: BACITRACIN 15GM TUBE TOP SCH (09:40)
== END 2020-09-30 15:50 | disposition home health service (06) | DRG 947 ==
PROVIDERS: ADMIT Psychiatry & Neurology Neurology; ATTEND Internal Medicine
DX: R53.81 Other malaise (principal); J96.01 Acute respiratory failure with hypoxia; G92 Toxic encephalopathy; I21.4 Non-ST elevation (NSTEMI) myocardial infarction; I25.110 Atherosclerotic heart disease of native coronary artery with unstable angina pectoris; I50.42 Chronic combined systolic (congestive) and diastolic (congestive) heart failure; I13.0 Hypertensive heart and chronic kidney disease with heart failure and stage 1 through stage 4 chronic kidney disease, or unspecified chronic kidney disease; K56.7 Ileus, unspecified; N17.9 Acute kidney failure, unspecified; D53.9 Nutritional anemia, unspecified; E11.22 Type 2 diabetes mellitus with diabetic chronic kidney disease; I48.0 Paroxysmal atrial fibrillation; N18.30 Chronic kidney disease, stage 3 unspecified; E78.5 Hyperlipidemia, unspecified; E83.42 Hypomagnesemia; F14.10 Cocaine abuse, uncomplicated; E87.6 Hypokalemia; Z60.2 Problems related to living alone; F01.50 Vascular dementia, unspecified severity, without behavioral disturbance, psychotic disturbance, mood disturbance, and anxiety; F39 Unspecified mood [affective] disorder; Z85.46 Personal history of malignant neoplasm of prostate; Z85.51 Personal history of malignant neoplasm of bladder; Z95.1 Presence of aortocoronary bypass graft; Z95.5 Presence of coronary angioplasty implant and graft; Z86.73 Personal history of transient ischemic attack (TIA), and cerebral infarction without residual deficits; Z79.899 Other long term (current) drug therapy; Z79.82 Long term (current) use of aspirin
CPT/HCPCS: 36415; 74018; 80048; 81003; 82962; 83735; 84100; 85025; 92523; 92610; 93005; 93970; 94618; 94640; 97110; 97116; 97161; 97166; 97530; 97535; J1815; J7608; J8597; Q0161; Q0162

== ENCOUNTER 2020-12-18 19:09 | Inpatient (IN) | payer MEDICARE, MEDICAID ==
[~2020-12-18] VITALS: Ht 172.7 cm; Wt 68.0 kg
[~2020-12-18 19:09] MED LIST changes: +ASPI-1160 PO; +CLOP75TA15 PO; +DOCU-150 PO; +FERR325T6 MT; +LEVE500T19 PO; +LIP40 PO; -METO25TA6 MT; -NITR0.4T49 SL; +OXYC30TA86 PO; +eliquis PO
[2020-12-18 23:21] LABS: BASOPHILS % 0.4 % (0.0-2.0); EOSINOPHILS % 2.3 % (0.0-5.0); HEMATOCRIT. 41.7 % (42.0-52.0); LYMPHOCYTES % 61.7 % (20.0-50.0); MEAN CORPUSCULAR HEMOGLOBIN 32.5 pg (28.0-32.0); MEAN CORPUSCULAR VOLUME 96.8 fL (80.0-94.0); MEAN PLATELET VOLUME 9.9 fl (7.4-10.4); MONOCYTES % 8.4 % (2.0-8.0); NEUTROPHILS % 27.2 % (40.0-76.0); PLATELET 144 x1000/uL (130-400); RED BLOOD CELL COUNT 4.31 mill/uL (4.7-6.1); RED CELL DISTRIBUTION WIDTH 13.8 % (11.6-14.6)
[2020-12-18 23:23] LABS: CHLORIDE 103 mEq/L (98-107)
[2020-12-18 23:29] LABS: PARTIAL THROMBOPLASTIN TIME 25.2 sec (23.4-31.0); PROTHROMBIN TIME 10.7 sec (9.6-11.0)
[2020-12-19] MEDS ORDERED: NITROGLYCERIN 0.4MG TABLET SL SL PRN (00:45)
[2020-12-19] MEDS ORDERED: ASPIRIN 81MG TABLET PO ONE (00:45)
[2020-12-19] MEDS ORDERED: ENOXAPARIN 80MG/0.8ML SYR SUBCUT ONE (02:15)
[2020-12-19] MEDS ORDERED: ONDANSETRON HCL 4MG/2ML INJ IV PRN (09:00)
[2020-12-19] MEDS ORDERED: ACETAMINOPHEN 325MG TABLET PO PRN (09:00)
[2020-12-19] MEDS ORDERED: AMLODIPINE 5MG TABLET PO SCH (10:15)
[2020-12-19 10:38] LABS: *BENZODIAZEPINES SCREEN URINE NEGATIVE (NEGATIVE); *COCAINE SCREEN URINE NEGATIVE (NEGATIVE); METHADONE URINE SCREEN NEGATIVE (NEGATIVE)
[2020-12-19 10:39] LABS: *AMPHETAMINES SCREEN URINE NEGATIVE (NEGATIVE); *BARBITURATES SCREEN URINE NEGATIVE (NEGATIVE); CANNABINOID URINE SCREEN NEGATIVE (NEGATIVE); OPIATES URINE SCREEN NEGATIVE (NEGATIVE); PHENCYCLIDINE URINE SCREEN NEGATIVE (NEGATIVE)
[2020-12-19] MEDS ORDERED: ISOS20TA57 MT (16:50)
[2020-12-19] MEDS ORDERED: AMLO5TAB88 PO (16:50)
[2020-12-19] MEDS ORDERED: NITR0.4T49 SL (16:52)
[2020-12-19] MEDS ORDERED: APIXABAN 2.5 MG TABLET PO SCH (17:00)
[2020-12-19] MEDS ORDERED: APIXABAN 5 MG TABLET PO SCH (17:00)
[2020-12-19 19:43] VITALS: BP 130/75
[2020-12-19] MEDS ORDERED: ATORVASTATIN CALCIUM 40MG TABLET PO SCH (21:00)
[2020-12-20] MEDS ORDERED: ENOXAPARIN 80MG/0.8ML SYR SUBCUT SCH (09:00)
== END 2020-12-19 19:45 | disposition home or self-care (01) | DRG 206 ==
LOC: ER 22:16 → MICUSO 12-19 02:07 → EDBEDREQTM 12-19 02:24 → EDBEDREQ 12-19 02:24 → 6WST 12-19 19:45
PROVIDERS: ADMIT Internal Medicine; ATTEND Internal Medicine
DX: M94.0 Chondrocostal junction syndrome [Tietze] (principal); I25.110 Atherosclerotic heart disease of native coronary artery with unstable angina pectoris; I50.32 Chronic diastolic (congestive) heart failure; N17.9 Acute kidney failure, unspecified; I13.0 Hypertensive heart and chronic kidney disease with heart failure and stage 1 through stage 4 chronic kidney disease, or unspecified chronic kidney disease; E78.5 Hyperlipidemia, unspecified; R00.1 Bradycardia, unspecified; N18.9 Chronic kidney disease, unspecified; I48.0 Paroxysmal atrial fibrillation; Z20.822 Contact with and (suspected) exposure to COVID-19; E11.22 Type 2 diabetes mellitus with diabetic chronic kidney disease; Z95.1 Presence of aortocoronary bypass graft; Z86.718 Personal history of other venous thrombosis and embolism; Z85.46 Personal history of malignant neoplasm of prostate; Z82.49 Family history of ischemic heart disease and other diseases of the circulatory system; Z79.01 Long term (current) use of anticoagulants
CPT/HCPCS: 36415; 71045; 78582; 80053; 80305; 83880; 84484; 85025; 85379; 87426; 93005; 93970; 99285; A9558; J1650

== ENCOUNTER 2021-04-01 13:46 | Inpatient (IN) | payer MEDICARE, MEDICAID ==
[~2021-04-01] VITALS: Ht 172.7 cm; Wt 64.4 kg
[2021-04-01] VITALS: BP 133/77
[~2021-04-01 13:46] MED LIST changes: +AMLO5TAB88 PO; +ISOS20TA57 MT; +NITR0.4T49 SL
[2021-04-01] MEDS ORDERED: ASPIRIN 81MG TABLET PO ONE (14:30)
[2021-04-01 14:57] LABS: BASOPHILS % 0.5 % (0.0-2.0); CHLORIDE 109 mEq/L (98-107); EOSINOPHILS % 0.8 % (0.0-5.0); HEMATOCRIT. 40.3 % (42.0-52.0); HEMOGLOBIN. 13.7 g/dL (14.0-18.0); LYMPHOCYTES % 54.7 % (20.0-50.0); MEAN CORPUSCULAR VOLUME 97.2 fL (80.0-94.0); MEAN PLATELET VOLUME 10.4 fl (7.4-10.4); MONOCYTES % 10.1 % (2.0-8.0); NEUTROPHILS % 33.9 % (40.0-76.0); PLATELET 135 x1000/uL (130-400); RED BLOOD CELL COUNT 4.14 mill/uL (4.7-6.1); RED CELL DISTRIBUTION WIDTH 13.3 % (11.6-14.6)
[2021-04-01 14:59] LABS: D-DIMER 0.39 mg/L FEU (<0.50); PARTIAL THROMBOPLASTIN TIME 24.2 sec (23.4-31.0); PROTHROMBIN TIME 11.2 sec (9.6-11.0)
[2021-04-01 22:20] VITALS: BP 118/63
[2021-04-01] MEDS ORDERED: AMIO100T4 PO (23:22)
[2021-04-01] MEDS ORDERED: ROSU40TA PO (23:23)
[2021-04-01] MEDS ORDERED: CITA20SO2 PO (23:27)
[2021-04-01] MEDS ORDERED: TOPUD PO (23:28)
[2021-04-01] MEDS ORDERED: METO25TA6 PO (23:29)
[2021-04-01] MEDS ORDERED: FERR236T3 PO (23:31)
[2021-04-01] MEDS ORDERED: DULO40CA2 PO (23:32)
[2021-04-02] MEDS ORDERED: SENNOSIDES/DOCUSATE SOD 8.6/50MG TABLET PO PRN
[2021-04-02] MEDS ORDERED: MORPHINE SULFATE 2 MG/ML CPJ (NOT FOR IM USE) IV PRN
[2021-04-02] MEDS ORDERED: AMIODARONE HCL 200 MG TABLET PO SCH
[2021-04-02] MEDS ORDERED: LEVETIRACETAM 500MG TABLET PO ONE
[2021-04-02] MEDS ORDERED: NITROGLYCERIN 0.4MG TABLET SL SL SCH
[2021-04-02] MEDS ORDERED: NITROGLYCERIN 0.4MG TABLET SL SL PRN (00:30)
[2021-04-02] MEDS ORDERED: LEVETIRACETAM 500MG TABLET PO SCH (00:30)
[2021-04-02] MEDS: ACETAMINOPHEN 650MG/20.3ML UDC PO PRN (00:58)
[2021-04-02 01:25] LABS: BASOPHILS % 0.3 % (0.0-2.0); HEMATOCRIT. 38.9 % (42.0-52.0); HEMOGLOBIN. 13.2 g/dL (14.0-18.0); LYMPHOCYTES % 60.9 % (20.0-50.0); MEAN CORPUSCULAR HEMOGLOBIN 33.1 pg (28.0-32.0); MEAN CORPUSCULAR VOLUME 97.6 fL (80.0-94.0); MEAN PLATELET VOLUME 9.8 fl (7.4-10.4); MONOCYTES % 8.2 % (2.0-8.0); NEUTROPHILS % 29.6 % (40.0-76.0); PLATELET 111 x1000/uL (130-400); RED BLOOD CELL COUNT 3.99 mill/uL (4.7-6.1); RED CELL DISTRIBUTION WIDTH 13.5 % (11.6-14.6)
[2021-04-02 01:29] LABS: CHLORIDE 109 mEq/L (98-107)
[2021-04-02 01:38] LABS: LDL CHOLESTEROL 106 mg/dL (5-100)
[2021-04-02 01:40] LABS: HDL CHOLESTEROL 49 mg/dL (40-59)
[2021-04-02 04:00] VITALS: BP 137/64
[2021-04-02 08:00] VITALS: BP 131/65
[2021-04-02] MEDS ORDERED: OXYCODONE HCL 20MG TABLET SR 12HR PO SCH ×2 (09:00→10:00)
[2021-04-02] MEDS ORDERED: METOPROLOL SUCCINATE 50MG ER TABLET PO SCH (09:00)
[2021-04-02] MEDS: AMIODARONE HCL 200 MG TABLET PO SCH (09:09)
[2021-04-02] MEDS: AMLODIPINE 5MG TABLET PO SCH (09:09)
[2021-04-02] MEDS: DULOXETINE HCL 20MG DR CAPSULE PO SCH (09:30)
[2021-04-02] MEDS ORDERED: ISOSORBIDE MONONITRATE 20MG TABLET PO SCH (10:00)
[2021-04-02] MEDS ORDERED: OXYCODONE HCL 10MG TABLET SR 12HR PO SCH (10:00)
[2021-04-02 12:00] VITALS: BP 113/68
[2021-04-02] MEDS: FERROUS SULFATE 300MG/5ML UDC PO SCH (13:28)
[2021-04-02] MEDS: ISOSORBIDE MONONITRATE 30MG TABLET SR 24HR PO SCH (13:29)
[2021-04-02] MEDS: LEVETIRACETAM 500MG TABLET PO SCH (13:29)
[2021-04-02] MEDS: ENOXAPARIN 60MG/0.6ML SYR SUBCUT SCH ×2 (13:30→20:53)
[2021-04-02 16:00] VITALS: BP 121/65
[2021-04-02] MEDS ORDERED: ONDANSETRON HCL 4MG/2ML INJ IV PRN (18:00)
[2021-04-02 19:53] LABS: *AMPHETAMINES SCREEN URINE NEGATIVE (NEGATIVE); *BARBITURATES SCREEN URINE NEGATIVE (NEGATIVE); *BENZODIAZEPINES SCREEN URINE NEGATIVE (NEGATIVE); *COCAINE SCREEN URINE PRESUMTIVE POSITIVE (NEGATIVE); CANNABINOID URINE SCREEN NEGATIVE (NEGATIVE); METHADONE URINE SCREEN NEGATIVE (NEGATIVE); OPIATES URINE SCREEN PRESUMTIVE POSITIVE (NEGATIVE); PHENCYCLIDINE URINE SCREEN NEGATIVE (NEGATIVE)
[2021-04-02 20:00] VITALS: BP 90/55
[2021-04-02] MEDS: ATORVASTATIN CALCIUM 40MG TABLET PO SCH (20:51)
[2021-04-03] VITALS: BP 98/53
[2021-04-03 05:27] VITALS: BP 106/50
[2021-04-03 08:05] VITALS: BP 122/64
[2021-04-03] MEDS: ISOSORBIDE MONONITRATE 30MG TABLET SR 24HR PO SCH (08:49)
[2021-04-03] MEDS: ASPIRIN 81MG TABLET PO SCH (08:49)
[2021-04-03] MEDS: AMLODIPINE 5MG TABLET PO SCH (08:49)
[2021-04-03] MEDS: DULOXETINE HCL 20MG DR CAPSULE PO SCH (08:49)
[2021-04-03] MEDS: ENOXAPARIN 60MG/0.6ML SYR SUBCUT SCH ×2 (08:50→21:14)
[2021-04-03] MEDS: AMIODARONE HCL 200 MG TABLET PO SCH (08:50)
[2021-04-03] MEDS: ACETAMINOPHEN 650MG/20.3ML UDC PO PRN (13:31)
[2021-04-03] MEDS: FERROUS SULFATE 300MG/5ML UDC PO SCH (13:31)
[2021-04-03] MEDS: LEVETIRACETAM 500MG TABLET PO SCH (13:32)
[2021-04-03] MEDS ORDERED: DEXTROSE 50% WATER 50ML SYRINGE IV PRN (15:00)
[2021-04-03 16:00] VITALS: BP 94/49
[2021-04-03 17:06] LABS: AMYLASE 104 IU/L (25-115)
[2021-04-03] MEDS: BLOOD SUGAR DIAGNOSTIC STRIP TEST SCH ×2 (17:19→21:20)
[2021-04-03] MEDS: INSULIN LISPRO 100 UNITS/ML SUBCUT SCH ×2 (17:19→21:20)
[2021-04-03 20:00] VITALS: BP 106/51
[2021-04-03] MEDS: ATORVASTATIN CALCIUM 40MG TABLET PO SCH (21:14)
[2021-04-04] VITALS: BP 107/51
[2021-04-04 06:48] LABS: BASOPHILS % 0.3 % (0.0-2.0); EOSINOPHILS % 0.8 % (0.0-5.0); HEMATOCRIT. 36.4 % (42.0-52.0); HEMOGLOBIN. 12.4 g/dL (14.0-18.0); LYMPHOCYTES % 47.5 % (20.0-50.0); MEAN CORPUSCULAR HEMOGLOBIN 32.6 pg (28.0-32.0); MEAN CORPUSCULAR VOLUME 95.9 fL (80.0-94.0); MEAN PLATELET VOLUME 10.3 fl (7.4-10.4); MONOCYTES % 8.4 % (2.0-8.0); PLATELET 113 x1000/uL (130-400); RED BLOOD CELL COUNT 3.79 mill/uL (4.7-6.1); RED CELL DISTRIBUTION WIDTH 12.7 % (11.6-14.6)
[2021-04-04] MEDS: BLOOD SUGAR DIAGNOSTIC STRIP TEST SCH ×2 (06:58→12:20)
[2021-04-04] MEDS: INSULIN LISPRO 100 UNITS/ML SUBCUT SCH ×2 (07:50→12:31)
[2021-04-04 08:00] VITALS: BP 113/58
[2021-04-04] MEDS: AMIODARONE HCL 200 MG TABLET PO SCH (10:01)
[2021-04-04] MEDS: ISOSORBIDE MONONITRATE 30MG TABLET SR 24HR PO SCH (10:02)
[2021-04-04] MEDS: DULOXETINE HCL 20MG DR CAPSULE PO SCH (10:02)
[2021-04-04] MEDS: AMLODIPINE 5MG TABLET PO SCH (10:02)
[2021-04-04] MEDS: ASPIRIN 81MG TABLET PO SCH (10:02)
[2021-04-04] MEDS: ENOXAPARIN 60MG/0.6ML SYR SUBCUT SCH (10:03)
[2021-04-04] MEDS: FERROUS SULFATE 300MG/5ML UDC PO SCH (12:29)
[2021-04-04] MEDS: ACETAMINOPHEN 650MG/20.3ML UDC PO PRN (12:29)
[2021-04-04] MEDS: LEVETIRACETAM 500MG TABLET PO SCH (12:29)
[2021-04-04 17:54] VITALS: BP 99/52
[2021-04-05] MEDS ORDERED: ENOXAPARIN 60MG/0.6ML SYR SUBCUT SCH (09:00)
== END 2021-04-04 18:51 | disposition home health service (06) | DRG 205 ==
LOC: ER 13:46 → 6WST 16:56 → EDBEDREQ 18:31 → ENRESERV 21:09
PROVIDERS: ADMIT Internal Medicine; ATTEND Internal Medicine
DX: M94.0 Chondrocostal junction syndrome [Tietze] (principal); I50.43 Acute on chronic combined systolic (congestive) and diastolic (congestive) heart failure; I13.0 Hypertensive heart and chronic kidney disease with heart failure and stage 1 through stage 4 chronic kidney disease, or unspecified chronic kidney disease; D61.818 Other pancytopenia; E44.1 Mild protein-calorie malnutrition; N17.9 Acute kidney failure, unspecified; I48.0 Paroxysmal atrial fibrillation; E11.22 Type 2 diabetes mellitus with diabetic chronic kidney disease; E87.5 Hyperkalemia; N18.9 Chronic kidney disease, unspecified; E78.5 Hyperlipidemia, unspecified; E87.8 Other disorders of electrolyte and fluid balance, not elsewhere classified; F14.10 Cocaine abuse, uncomplicated; Z20.822 Contact with and (suspected) exposure to COVID-19; I25.10 Atherosclerotic heart disease of native coronary artery without angina pectoris; Z95.1 Presence of aortocoronary bypass graft; Z86.718 Personal history of other venous thrombosis and embolism; I25.2 Old myocardial infarction; Z91.041 Radiographic dye allergy status; Z79.899 Other long term (current) drug therapy; Z79.82 Long term (current) use of aspirin; Z79.891 Long term (current) use of opiate analgesic; Z85.46 Personal history of malignant neoplasm of prostate; Z82.49 Family history of ischemic heart disease and other diseases of the circulatory system; Z68.21 Body mass index [BMI] 21.0-21.9, adult; Z86.711 Personal history of pulmonary embolism; Z79.01 Long term (current) use of anticoagulants
CPT/HCPCS: 36415; 71045; 74018; 74176; 76700; 78582; 80048; 80053; 80061; 80305; 82150; 82962; 83036; 83880; 84484; 85025; 85379; 87426; 93005; 93306; 93970; 99285; A9558; J1650; J2405

== ENCOUNTER 2021-05-29 09:10 | Emergency (ER) | payer MEDICARE, MEDICAID ==
[~2021-05-29] VITALS: Ht 172.7 cm; Wt 70.0 kg
[~2021-05-29 09:10] MED LIST changes: +AMIO100T4 PO; +CITA20SO2 PO; +DULO40CA2 PO; -KETO15CR2 TP; -NITR0.4T49 SL; -NITR12SP4 TL; -OXYC-662 MT; -SODI3.5O6 OP; +TOPUD PO
[2021-05-29 09:13] VITALS: BP 112/53
== END 2021-05-29 12:29 | disposition home or self-care (01) ==
LOC: ER 09:10
DX: I82.402 Acute embolism and thrombosis of unspecified deep veins of left lower extremity (principal); I25.2 Old myocardial infarction; I10 Essential (primary) hypertension; E11.9 Type 2 diabetes mellitus without complications; Z91.041 Radiographic dye allergy status; Z79.899 Other long term (current) drug therapy; Z98.890 Other specified postprocedural states
CPT/HCPCS: 93971; 99284

== ENCOUNTER 2021-09-08 20:04 | Emergency (ER) | payer MEDICARE, MEDICAID ==
[~2021-09-08] VITALS: Ht 172.7 cm; Wt 68.0 kg
[2021-09-08 21:40] LABS: CLARITY URINE CLOUDY (CLEAR); COLOR URINE YELLOW (YELLOW); KETONES URINE NEGATIVE (NEGATIVE); LEUKOCYTE ESTERASE URINE 1+ (NEGATIVE); NITRITE URINE NEGATIVE (NEGATIVE); OCCULT BLOOD URINE TRACE (NEGATIVE); PH URINE 6.5 (4.5-8.0); PROTEIN URINE TRACE (NEGATIVE); SPECIFIC GRAVITY URINE 1.013 (1.005-1.030); UROBILINOGEN URINE 0.2 E.U./dL (0.2-1.0)
[2021-09-08 21:46] LABS: BASOPHILS % 0.3 % (0.0-2.0); EOSINOPHILS % 0.7 % (0.0-5.0); HEMATOCRIT. 41.7 % (42.0-52.0); HEMOGLOBIN. 14.2 g/dL (14.0-18.0); LYMPHOCYTES % 52.6 % (20.0-50.0); MEAN CORPUSCULAR HEMOGLOBIN 33.2 pg (28.0-32.0); MEAN CORPUSCULAR VOLUME 97.5 fL (80.0-94.0); MEAN PLATELET VOLUME 10.5 fl (7.4-10.4); MONOCYTES % 9.4 % (2.0-8.0); PLATELET 110 x1000/uL (130-400); RED BLOOD CELL COUNT 4.28 mill/uL (4.7-6.1); RED CELL DISTRIBUTION WIDTH 13.5 % (11.6-14.6)
[2021-09-08 21:48] LABS: CHLORIDE 109 mEq/L (98-107)
[2021-09-08] MEDS ORDERED: IOHEXOL-300 100 ML BOTTLE ONE (23:11)
[2021-09-09 01:45] VITALS: BP 112/52
== END 2021-09-09 02:00 | disposition home or self-care (01) ==
LOC: ER 20:04
DX: R10.32 Left lower quadrant pain (principal); I25.2 Old myocardial infarction; Z95.1 Presence of aortocoronary bypass graft; Z85.46 Personal history of malignant neoplasm of prostate; Z85.51 Personal history of malignant neoplasm of bladder; Z86.718 Personal history of other venous thrombosis and embolism; Z93.2 Ileostomy status; Z79.01 Long term (current) use of anticoagulants; Z91.041 Radiographic dye allergy status
CPT/HCPCS: 36415; 74177; 76705; 80053; 81003; 83690; 85025; 93005; 99285; Q9967

== ENCOUNTER 2021-10-23 09:01 | Emergency (ER) | payer MEDICARE, MEDICAID ==
[~2021-10-23] VITALS: Ht 172.7 cm; Wt 69.0 kg
[2021-10-23 09:21] VITALS: BP 149/88
== END 2021-10-23 11:18 | disposition home or self-care (01) ==
LOC: ER 09:01
DX: M54.12 Radiculopathy, cervical region (principal); I10 Essential (primary) hypertension
CPT/HCPCS: 99281

== ENCOUNTER 2024-09-19 21:44 | Emergency (ER) | payer MEDICARE, MEDICAID ==
[~2024-09-19] VITALS: Ht 167.6 cm; Wt 72.0 kg
[~2024-09-19 21:44] MED LIST changes: -DICL100G31 TP; +DICL100G58 TP; -DOCU-150 PO; +DOCU-422 PO; +ISOS-51 MT; -ISOS20TA57 MT
[2024-09-19 21:45] VITALS: O2SAT 99
[2024-09-19 23:16] VITALS: BP 127/99; PULSE 80; RESP 23; TEMP 36.7; O2SAT 99
== END 2024-09-19 23:20 | disposition left against medical advice (07) ==
LOC: ER 21:44
DX: R42 Dizziness and giddiness (principal); R55 Syncope and collapse; I10 Essential (primary) hypertension; I25.10 Atherosclerotic heart disease of native coronary artery without angina pectoris; Z79.01 Long term (current) use of anticoagulants; Z79.02 Long term (current) use of antithrombotics/antiplatelets; Z79.82 Long term (current) use of aspirin; Z79.899 Other long term (current) drug therapy; Z86.718 Personal history of other venous thrombosis and embolism; Z86.73 Personal history of transient ischemic attack (TIA), and cerebral infarction without residual deficits; Z91.041 Radiographic dye allergy status; Z95.1 Presence of aortocoronary bypass graft
CPT/HCPCS: 71045; 93005; 99284; A4606